=== PATIENT | female | born 1950 | race Caucasian/White ===

== ENCOUNTER 2017-01-20 09:02 | Outpatient (CLI) | payer OTHER | END 2017-01-20 09:03 | disposition home or self-care (01) | DX: I10 Essential (primary) hypertension (principal); E78.5 Hyperlipidemia, unspecified; E55.9 Vitamin D deficiency, unspecified; E11.9 Type 2 diabetes mellitus without complications ==

== ENCOUNTER 2017-06-19 08:58 | Outpatient (CLI) | payer OTHER ==
[2017-06-19 13:25] LABS: ALBUMIN/GLOBULIN RATIO 1.3 (1.0-2.2); BILIRUBIN,TOTAL 0.5 mg/dL (0.2-1.0); BUN - BLOOD UREA NITROGEN 17 mg/dL (6-20); CALCIUM 9.6 mg/dL (8.5-10.3); CARBON DIOXIDE - CO2 27 mmol/L (21-32); CHLORIDE 105 mmol/L (101-111); CHOLESTEROL 165 mg/dL; CREATININE 1.1 mg/dL (0.4-1.0); GFR - MDRD 50 (>89); GLUCOSE 94 mg/dL (70-100); HDL CHOLESTEROL 33 mg/dL; LDL/HDL RATIO 2.5 (<4.4); POTASSIUM 4.3 mmol/L (3.5-5.0); SODIUM 142 mmol/L (135-145); TOTAL PROTEIN 7.3 g/dL (6.7-8.2); TRIGLYCERIDES 245 mg/dL; VLDL CHOLESTEROL 49 mg/dL
== END 2017-06-19 08:59 | disposition home or self-care (01) ==
LOC: LAB.WCP 08:58
PROVIDERS: ATTEND Family Medicine
DX: E78.5 Hyperlipidemia, unspecified (principal)
CPT/HCPCS: 36415; 80053; 80061

== ENCOUNTER 2017-09-18 08:00 | Outpatient (CLI) | payer OTHER ==
[2017-09-18 20:10] LABS: HEMOGLOBIN A1C 0.9 g/dL
[2017-09-18 20:28] LABS: ALBUMIN/GLOBULIN RATIO 1.2 (1.0-2.2); BILIRUBIN,TOTAL 0.4 mg/dL (0.2-1.0); BUN - BLOOD UREA NITROGEN 17 mg/dL (6-20); CALCIUM 9.7 mg/dL (8.5-10.3); CARBON DIOXIDE - CO2 26 mmol/L (21-32); CHLORIDE 107 mmol/L (101-111); CHOL/HDL RATIO 6.6 (<4.4); CHOLESTEROL 191 mg/dL; CREATININE 1.3 mg/dL (0.4-1.0); GFR - MDRD 41 (>89); GLUCOSE 85 mg/dL (70-100); HDL CHOLESTEROL 29 mg/dL; LDL/HDL RATIO 3.7 (<4.4); POTASSIUM 4.4 mmol/L (3.5-5.0); SODIUM 139 mmol/L (135-145); TOTAL PROTEIN 7.4 g/dL (6.7-8.2); TRIGLYCERIDES 269 mg/dL; VLDL CHOLESTEROL 54 mg/dL
== END 2017-09-18 08:01 | disposition home or self-care (01) ==
LOC: LAB.WCP 08:00
PROVIDERS: ATTEND Family Medicine
DX: E78.5 Hyperlipidemia, unspecified (principal); E11.9 Type 2 diabetes mellitus without complications
CPT/HCPCS: 36415; 80053; 80061; 83036

== ENCOUNTER 2018-01-29 08:00 | Outpatient (CLI) | payer MEDICARE, OTHER | END 2018-01-29 08:01 | LOC: LAB.R 08:00 | PROVIDERS: ATTEND Family Medicine | DX: R30.0 Dysuria (principal) | CPT/HCPCS: 87077; 87086 ==

== ENCOUNTER 2018-02-19 09:39 | Outpatient (CLI) | payer MEDICARE, OTHER ==
[2018-02-19 12:52] LABS: BASOPHILS % (AUTO) 0.6 %; EOSINOPHILS # (AUTO) 0.4 10^3/uL (0.0-0.7); EOSINOPHILS % (AUTO) 5.5 %; HGB - HEMOGLOBIN 12.3 g/dL (12.0-16.0); LYMPHOCYTES # (AUTO) 2.1 10^3/uL (1.5-3.5); LYMPHOCYTES % (AUTO) 32.8 %; MEAN CORPUSCULAR HEMOGLOBIN 31.5 pg (27.0-31.0); MEAN CORPUSCULAR HGB CONC 34.1 g/dL (32.0-36.0); MEAN CORPUSCULAR VOLUME 92.2 fL (81.0-99.0); MEAN PLATELET VOLUME 9.3 fL (7.9-10.8); MONOCYTES # (AUTO) 0.4 10^3/uL (0.0-1.0); MONOCYTES % (AUTO) 6.5 %; NEUTROPHILS # (AUTO) 3.5 10^3/uL (1.5-6.6); NEUTROPHILS % (AUTO) 54.6 %; PLT - PLATELET COUNT 267 10^3/uL (130-450); RED CELL DISTRIBUTION WIDTH 13.4 % (12.0-15.0); WHITE BLOOD COUNT 6.5 x10^3/uL (4.8-10.8)
[2018-02-19 13:39] LABS: HB2 TOTAL 13.2 g/dL; HEMOGLOBIN A1C 0.88 g/dL; HEMOGLOBIN A1C % 8.3 % (4.6-6.2)
[2018-02-19 13:43] LABS: ALBUMIN 4.1 g/dL (3.2-5.5); ALBUMIN/GLOBULIN RATIO 1.4 (1.0-2.2); ALKALINE PHOSPHATASE 63 IU/L (42-121); ALT ALANINE AMINOTRANSFERASE 39 IU/L (10-60); AST ASPARTATE AMINOTRANSFERASE 38 IU/L (10-42); BILIRUBIN,TOTAL 0.4 mg/dL (0.2-1.0); BUN - BLOOD UREA NITROGEN 18 mg/dL (6-20); CALCIUM 9.7 mg/dL (8.5-10.3); CARBON DIOXIDE - CO2 27 mmol/L (21-32); CHLORIDE 104 mmol/L (101-111); CHOL/HDL RATIO 6.6 (<4.4); CHOLESTEROL 179 mg/dL; CREATININE 1.1 mg/dL (0.4-1.0); GFR - MDRD 50 (>89); GLUCOSE 111 mg/dL (70-100); HDL CHOLESTEROL 27 mg/dL; LDL CHOLESTEROL,CALCULATED 103 mg/dL; LDL/HDL RATIO 3.8 (<4.4); SODIUM 138 mmol/L (135-145); TOTAL PROTEIN 7.1 g/dL (6.7-8.2); VLDL CHOLESTEROL 49 mg/dL
== END 2018-02-19 09:40 | disposition home or self-care (01) ==
LOC: LAB.WCP 09:39
PROVIDERS: ATTEND Family Medicine
DX: E11.9 Type 2 diabetes mellitus without complications (principal); I10 Essential (primary) hypertension; E78.5 Hyperlipidemia, unspecified
CPT/HCPCS: 36415; 80053; 80061; 82043; 83036; 83721; 85025

== ENCOUNTER 2018-02-27 07:30 | Outpatient (CLI) | payer MEDICARE, OTHER | END 2018-02-27 07:31 | disposition home or self-care (01) | LOC: LAB.WCP 07:30 | PROVIDERS: ATTEND Family Medicine | DX: R19.7 Diarrhea, unspecified (principal) | CPT/HCPCS: 87493 ==

== ENCOUNTER 2018-06-23 09:08 | Outpatient (CLI) | payer MEDICARE, OTHER ==
[2018-06-23 12:30] LABS: BASOPHILS # (AUTO) 0.1 10^3/uL (0.0-0.1); BASOPHILS % (AUTO) 0.8 %; EOSINOPHILS # (AUTO) 0.3 10^3/uL (0.0-0.7); EOSINOPHILS % (AUTO) 5.6 %; HGB - HEMOGLOBIN 12.4 g/dL (12.0-16.0); LYMPHOCYTES # (AUTO) 2.3 10^3/uL (1.5-3.5); LYMPHOCYTES % (AUTO) 37.2 %; MEAN CORPUSCULAR HEMOGLOBIN 31.9 pg (27.0-31.0); MEAN CORPUSCULAR HGB CONC 34.4 g/dL (32.0-36.0); MEAN CORPUSCULAR VOLUME 92.6 fL (81.0-99.0); MEAN PLATELET VOLUME 9.3 fL (7.9-10.8); MONOCYTES # (AUTO) 0.4 10^3/uL (0.0-1.0); MONOCYTES % (AUTO) 5.8 %; NEUTROPHILS # (AUTO) 3.2 10^3/uL (1.5-6.6); NEUTROPHILS % (AUTO) 50.6 %; PLT - PLATELET COUNT 267 10^3/uL (130-450); RED BLOOD COUNT 3.89 10^6/uL (4.20-5.40); RED CELL DISTRIBUTION WIDTH 12.9 % (12.0-15.0); WHITE BLOOD COUNT 6.3 x10^3/uL (4.8-10.8)
[2018-06-23 12:52] LABS: ALBUMIN 4.1 g/dL (3.2-5.5); ALBUMIN/GLOBULIN RATIO 1.3 (1.0-2.2); ALKALINE PHOSPHATASE 73 IU/L (42-121); ALT ALANINE AMINOTRANSFERASE 52 IU/L (10-60); AST ASPARTATE AMINOTRANSFERASE 41 IU/L (10-42); BILIRUBIN,TOTAL 0.5 mg/dL (0.2-1.0); BUN - BLOOD UREA NITROGEN 25 mg/dL (6-20); CALCIUM 9.9 mg/dL (8.5-10.3); CARBON DIOXIDE - CO2 25 mmol/L (21-32); CHLORIDE 104 mmol/L (101-111); CHOL/HDL RATIO 4.9 (<4.4); CHOLESTEROL 186 mg/dL; CREATININE 1.1 mg/dL (0.4-1.0); GFR - MDRD 50 (>89); GLUCOSE 176 mg/dL (70-100); HDL CHOLESTEROL 38 mg/dL; LDL CHOLESTEROL,CALCULATED 104 mg/dL; LDL/HDL RATIO 2.7 (<4.4); SODIUM 139 mmol/L (135-145); TOTAL PROTEIN 7.3 g/dL (6.7-8.2); VLDL CHOLESTEROL 44 mg/dL
[2018-06-23 13:47] LABS: HEMOGLOBIN A1C 0.94 g/dL; HEMOGLOBIN A1C % 8.8 % (4.6-6.2)
== END 2018-06-23 09:09 | disposition home or self-care (01) ==
LOC: LAB.WCP 09:08
PROVIDERS: ATTEND Family Medicine
DX: I10 Essential (primary) hypertension (principal); E11.9 Type 2 diabetes mellitus without complications; E78.5 Hyperlipidemia, unspecified
CPT/HCPCS: 36415; 80053; 80061; 83036; 83721; 85025

== ENCOUNTER 2019-01-19 09:30 | Outpatient (CLI) | payer MEDICARE, OTHER ==
[2019-01-19 12:59] LABS: BASOPHILS # (AUTO) 0.1 10^3/uL (0.0-0.1); BASOPHILS % (AUTO) 1.3 %; EOSINOPHILS # (AUTO) 0.4 10^3/uL (0.0-0.7); EOSINOPHILS % (AUTO) 5.8 %; LYMPHOCYTES # (AUTO) 2.4 10^3/uL (1.5-3.5); LYMPHOCYTES % (AUTO) 33.8 %; MEAN CORPUSCULAR HEMOGLOBIN 31.9 pg (27.0-31.0); MEAN CORPUSCULAR HGB CONC 34.1 g/dL (32.0-36.0); MEAN CORPUSCULAR VOLUME 93.5 fL (81.0-99.0); MEAN PLATELET VOLUME 9.3 fL (7.9-10.8); MONOCYTES # (AUTO) 0.5 10^3/uL (0.0-1.0); MONOCYTES % (AUTO) 7.2 %; NEUTROPHILS # (AUTO) 3.7 10^3/uL (1.5-6.6); NEUTROPHILS % (AUTO) 51.9 %; PLT - PLATELET COUNT 275 10^3/uL (130-450); RED BLOOD COUNT 4.08 10^6/uL (4.20-5.40); RED CELL DISTRIBUTION WIDTH 13.1 % (12.0-15.0); WHITE BLOOD COUNT 7.2 x10^3/uL (4.8-10.8)
[2019-01-19 13:01] LABS: HEMOGLOBIN A1C 0.89 g/dL
[2019-01-19 13:07] LABS: ALBUMIN/GLOBULIN RATIO 1.1 (1.0-2.2); ALKALINE PHOSPHATASE 75 IU/L (42-121); ALT ALANINE AMINOTRANSFERASE 42 IU/L (10-60); AST ASPARTATE AMINOTRANSFERASE 36 IU/L (10-42); BILIRUBIN,TOTAL 0.6 mg/dL (0.2-1.0); BUN - BLOOD UREA NITROGEN 23 mg/dL (6-20); CALCIUM 9.7 mg/dL (8.5-10.3); CARBON DIOXIDE - CO2 27 mmol/L (21-32); CHLORIDE 104 mmol/L (101-111); CHOL/HDL RATIO 5.4 (<4.4); CHOLESTEROL 177 mg/dL; CREATININE 1.2 mg/dL (0.4-1.0); GFR - MDRD 45 (>89); GLUCOSE 97 mg/dL (70-100); HDL CHOLESTEROL 33 mg/dL; LDL CHOLESTEROL,CALCULATED 103 mg/dL; LDL/HDL RATIO 3.1 (<4.4); SODIUM 139 mmol/L (135-145); TOTAL PROTEIN 7.5 g/dL (6.7-8.2); VLDL CHOLESTEROL 41 mg/dL
== END 2019-01-19 23:59 | disposition home or self-care (01) ==
LOC: LAB.WCP 09:30
PROVIDERS: ATTEND Family Medicine
DX: E78.5 Hyperlipidemia, unspecified (principal); E11.9 Type 2 diabetes mellitus without complications; I10 Essential (primary) hypertension
CPT/HCPCS: 36415; 80053; 80061; 83036; 83721; 85025

== ENCOUNTER 2019-02-09 09:01 | Outpatient (CLI) | payer MEDICARE, OTHER ==
--- NOTE | 2019-02-09 11:22 | XRAY Report ---
Reason: FOOT PAIN,RIGHT Procedure Date: 02/09/2019 Accession Number: [id number] / [id number] Procedure: WCP - Foot 3 View RT CPT Code: FULL RESULT: EXAM: RIGHT FOOT RADIOGRAPHY EXAM DATE: 02/09/2019 09:12 AM. CLINICAL HISTORY: Foot pain, right. COMPARISON: None. TECHNIQUE: 3 views. FINDINGS: Bones: Os peroneum variant is noted. No fractures or bone lesions. Joints: Normal. No subluxations. Soft Tissues: Normal. No soft tissue swelling. IMPRESSION: Os peroneum is a common anatomical variant which is sometimes associated with pathology including fracture, peroneus longus tenosynovitis or peroneus longus tear. Please correlate this to the location of the patient's foot tenderness. RADIA
== END 2019-02-09 09:02 | disposition home or self-care (01) ==
LOC: DI.WCP 09:01
PROVIDERS: ATTEND Family Medicine
DX: M79.671 Pain in right foot (principal)

== ENCOUNTER → 2019-06-16 | Outpatient (CLI) | payer MEDICARE, OTHER ==
[2019-06-16 12:35] LABS: BASOPHILS # (AUTO) 0.1 10^3/uL (0.0-0.1); BASOPHILS % (AUTO) 0.7 %; EOSINOPHILS # (AUTO) 0.3 10^3/uL (0.0-0.7); EOSINOPHILS % (AUTO) 4.3 %; HGB - HEMOGLOBIN 12.7 g/dL (12.0-16.0); LYMPHOCYTES # (AUTO) 2.2 10^3/uL (1.5-3.5); MEAN CORPUSCULAR HEMOGLOBIN 32.4 pg (27.0-31.0); MEAN CORPUSCULAR HGB CONC 33.7 g/dL (32.0-36.0); MEAN CORPUSCULAR VOLUME 96.2 fL (81.0-99.0); MEAN PLATELET VOLUME 11.5 fL (7.9-10.8); MONOCYTES # (AUTO) 0.5 10^3/uL (0.0-1.0); NEUTROPHILS # (AUTO) 4.2 10^3/uL (1.5-6.6); NEUTROPHILS % (AUTO) 57.6 %; PLT - PLATELET COUNT 265 10^3/uL (130-450); RED BLOOD COUNT 3.92 10^6/uL (4.20-5.40); RED CELL DISTRIBUTION WIDTH 12.7 % (12.0-15.0); WHITE BLOOD COUNT 7.3 x10^3/uL (4.8-10.8)
[2019-06-16 12:49] LABS: ALBUMIN 4.2 g/dL (3.2-5.5); ALBUMIN/GLOBULIN RATIO 1.2 (1.0-2.2); ALKALINE PHOSPHATASE 74 IU/L (42-121); ALT ALANINE AMINOTRANSFERASE 61 IU/L (10-60); AST ASPARTATE AMINOTRANSFERASE 68 IU/L (10-42); BILIRUBIN,TOTAL 0.6 mg/dL (0.2-1.0); BUN - BLOOD UREA NITROGEN 20 mg/dL (6-20); CALCIUM 9.9 mg/dL (8.5-10.3); CARBON DIOXIDE - CO2 29 mmol/L (21-32); CHLORIDE 105 mmol/L (101-111); CHOL/HDL RATIO 5.7 (<4.4); CHOLESTEROL 171 mg/dL; CREATININE 1.1 mg/dL (0.4-1.0); GFR - MDRD 50 (>89); GLUCOSE 109 mg/dL (70-100); HDL CHOLESTEROL 30 mg/dL; LDL CHOLESTEROL,CALCULATED 97 mg/dL; LDL/HDL RATIO 3.2 (<4.4); SODIUM 142 mmol/L (135-145); TOTAL PROTEIN 7.6 g/dL (6.7-8.2); VLDL CHOLESTEROL 44 mg/dL
[2019-06-16 13:29] LABS: HB2 TOTAL 12.9 g/dL; HEMOGLOBIN A1C 0.92 g/dL; HEMOGLOBIN A1C % 8.7 % (4.6-6.2)
== END ==
LOC: LAB.WCP 09:00
PROVIDERS: ATTEND Family Medicine
DX: E78.5 Hyperlipidemia, unspecified (principal); E11.9 Type 2 diabetes mellitus without complications; I10 Essential (primary) hypertension
CPT/HCPCS: 36415; 80053; 80061; 83036; 83721; 85025

== ENCOUNTER 2019-07-02 09:48 | Outpatient (CLI) | payer MEDICARE, OTHER ==
--- NOTE | 2019-07-05 13:37 | DEXA Report ---
Reason: OSTEOPENIA Procedure Date: 07/02/2019 Accession Number: [id number] / [id number] Procedure: DEX - Dexa Spine and/or Hip CPT Code: FULL RESULT: EXAM: Dexa Spine and/or Hip DATE: 07/02/2019 11:10 AM CLINICAL HISTORY: OSTEOPENIA FOLLOW-UP TECHNIQUE: Dual energy x-ray absorptiometry (DXA) was performed on a [email or web address] System. Regions measured are the AP Spine, femoral neck, and if needed forearm. COMPARISON: None. Performed at an outside institution. In accordance with the International Society for Clinical Densitometry (ISCD) guidelines, data from previous exams may be reanalyzed using current recommendations and techniques. This is done to allow a more accurate basis for comparison with the current study. FINDINGS: The data for the lumbar spine is as follows: BMD (g/cm/cm) T-SCORE Z-SCORE REGION L1 1.212 0.7 2.0 L2 1.212 0.1 1.4 L3 1.183 -0.1 1.1 L4 1.182 -0.1 1.1 TOTAL 1.196 0.1 1.4 NOTE: All evaluable vertebrae are used for classification The data for the hip is as follows: BMD (g/cm/cm) T-SCORE Z-SCORE REGION Neck 0.753 -2.1 -0.7 TOTAL 0.917 -0.7 0.3 NOTE: The femoral neck or total proximal femur, whichever is lowest, is used for classification. IMPRESSION: THE WHO CLASSIFICATION BASED ON THE INTERNATIONAL REFERENCE STANDARD IS OSTEOPENIA, REFERENCE LEFT FEMORAL NECK. THE FRACTURE RISK IS INCREASED. RECOMMENDATION: Patients with diagnosis of osteoporosis or osteopenia should have regular bone mineral density assessment. For those eligible for Medicare, routine testing is allowed once every 2 years. Testing frequency can be increased for patients who have rapidly progressing disease or for those who are receiving medical therapy to restore bone mass. COMMENT: World Health Organization (WHO) definitions for osteoporosis and osteopenia: NORMAL BMD: T-score at -1.0 or higher, fracture risk is low OSTEOPENIA BMD: T-score between -1.0 and -2.5, fracture risk is increased. OSTEOPOROSIS BMD: T-score at -2.5 or lower, fracture risk is high. National Osteoporosis Foundation recommends: 1. Obtain adequate dietary calcium (at least 1200 mg per day) and vitamin D (400-800 international units per day). 2. Participate, as appropriate, in regular weightbearing and muscle-strengthening exercise. 3. Avoid tobacco use and reduce alcohol and caffeine intake. 4. For more detailed information see the website at www.NOF.org.
== END 2019-07-02 09:49 | disposition home or self-care (01) ==
LOC: DI 09:48
PROVIDERS: ATTEND Physician Assistant Medical
DX: M85.88 Other specified disorders of bone density and structure, other site (principal)
CPT/HCPCS: 77080

== ENCOUNTER 2019-09-21 08:42 | Outpatient (CLI) | payer MEDICARE, OTHER ==
[2019-09-21 13:43] LABS: ALBUMIN 4.4 g/dL (3.2-5.5); ALBUMIN/GLOBULIN RATIO 1.3 (1.0-2.2); ALKALINE PHOSPHATASE 71 IU/L (42-121); ALT ALANINE AMINOTRANSFERASE 42 IU/L (10-60); AST ASPARTATE AMINOTRANSFERASE 48 IU/L (10-42); BILIRUBIN,TOTAL 0.6 mg/dL (0.2-1.0); BUN - BLOOD UREA NITROGEN 21 mg/dL (6-20); CALCIUM 9.9 mg/dL (8.5-10.3); CARBON DIOXIDE - CO2 28 mmol/L (21-32); CHLORIDE 105 mmol/L (101-111); CHOL/HDL RATIO 5.7 (<4.4); CHOLESTEROL 195 mg/dL; CREATININE 1.1 mg/dL (0.4-1.0); GFR - MDRD 50 (>89); GLUCOSE 105 mg/dL (70-100); HDL CHOLESTEROL 34 mg/dL; LDL CHOLESTEROL,CALCULATED 131 mg/dL; LDL/HDL RATIO 3.9 (<4.4); SODIUM 141 mmol/L (135-145); TOTAL PROTEIN 7.8 g/dL (6.7-8.2); VLDL CHOLESTEROL 30 mg/dL
[2019-09-21 14:11] LABS: HB2 TOTAL 13.1 g/dL; HEMOGLOBIN A1C 0.97 g/dL; HEMOGLOBIN A1C % 8.9 % (4.6-6.2)
== END 2019-09-21 23:59 | disposition home or self-care (01) ==
LOC: LAB.WCP 08:42
PROVIDERS: ATTEND Physician Assistant Medical
DX: E11.9 Type 2 diabetes mellitus without complications (principal)
CPT/HCPCS: 36415; 80053; 80061; 83036; 83721

== ENCOUNTER 2019-10-31 02:02 | Emergency (ER) | payer MEDICARE, OTHER ==
[2019-10-31 02:54] LABS: BASOPHILS # (AUTO) 0.1 10^3/uL (0.0-0.1); BASOPHILS % (AUTO) 0.8 %; EOSINOPHILS # (AUTO) 0.2 10^3/uL (0.0-0.7); EOSINOPHILS % (AUTO) 1.6 %; LYMPHOCYTES # (AUTO) 2.5 10^3/uL (1.5-3.5); MEAN CORPUSCULAR HEMOGLOBIN 31.1 pg (27.0-31.0); MEAN CORPUSCULAR HGB CONC 32.8 g/dL (32.0-36.0); MEAN CORPUSCULAR VOLUME 94.7 fL (81.0-99.0); MONOCYTES # (AUTO) 0.7 10^3/uL (0.0-1.0); MONOCYTES % (AUTO) 7.5 %; NEUTROPHILS % (AUTO) 63.1 %; PLT - PLATELET COUNT 344 10^3/uL (130-450); RED BLOOD COUNT 4.18 10^6/uL (4.20-5.40); RED CELL DISTRIBUTION WIDTH 12.2 % (12.0-15.0); WHITE BLOOD COUNT 9.5 x10^3/uL (4.8-10.8)
[2019-10-31 03:05] LABS: BILIRUBIN,TOTAL 0.7 mg/dL (0.2-1.0); CALCIUM 10.3 mg/dL (8.5-10.3); CREATININE 1.6 mg/dL (0.4-1.0)
--- NOTE | 2019-10-31 03:05 | ED Physician Documentation ---
History of Present Illness - Stated complaint Stated Complaint: LOW BLOOD SUGAR - Chief complaint Chief Complaint: Abd Pain - History obtained from History obtained from: Patient - History of Present Illness Timing: Enter time (01:40), Today Pain level max: 0 Pain level now: 0 Improved by: PO (orange juice) Worsened by: no apparent exacerbating factors - Additonal information Additional information: patient states Pippa been fighting a sinus infection all week and low blood sugar. woke 1:40 AM with dizziness, clammy, blood sugar 47. gave her PO sugars such as orange juice, but blood sugar on recheck was 44 so came to ED. 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 - Present Medications Home Medications: Ambulatory Orders Medication Instructions Recorded Confirmed Albuterol Sulfate [Proair Hfa 1 - 2 puffs INH Q4H PRN 09/29/19 10/31/19 Inhaler] Insulin Glargine [Lantus Solostar] 40 unit SQ DAILY PM 09/29/19 10/31/19 Insulin Glulisine [Apidra Solostar] 5 - 15 unit SUBQ TIDWM 09/29/19 10/31/19 Metformin HCl 1,000 mg PO BID 09/29/19 10/31/19 Simvastatin 20 mg PO DAILY PM 09/29/19 10/31/19 gemfibroziL [Gemfibrozil] 600 mg PO BID 09/29/19 10/31/19 lisinopriL [Lisinopril] 2.5 mg PO DAILY 09/29/19 10/31/19 Doxycycline Hyclate 100 mg PO BID 10/31/19 10/31/19 Guaifenesin/Dextromethorphan 5 - 10 ml PO Q6HR PRN 10/31/19 10/31/19 [Guaifenesin-Dm 100-10 mg/5 ml] Ondansetron [Ondansetron Odt] 8 mg PO Q6HR PRN 10/31/19 10/31/19 - Allergies Allergies/Adverse Reactions: Allergies Allergy/AdvReac Type Severity Reaction Status Date / Time canagliflozin [From Invokana] AdvReac Unknown Verified 10/31/19 02:24 cephalexin [From Keflex] AdvReac Unknown Verified 10/31/19 02:24 - Social History Does the pt smoke?: No Smoking Status: Never smoker Does the pt drink ETOH?: No Does the pt have substance abuse?: No - Immunizations Immunizations are current?: Yes - POLST Patient has POLST: No PD ED PE NORMAL - Vitals Vital signs reviewed: Yes - General General: Alert and oriented X 3, No acute distress, Well developed/nourished - HEENT HEENT: Moist mucous membranes - Neck Neck: Supple, no meningeal sign - Cardiac Cardiac: RRR, No murmur - Respiratory Respiratory: No respiratory distress, Clear bilaterally - Abdomen Abdomen: Soft, Non tender - Neuro Neuro: Alert and oriented X 3 Eye Opening: Spontaneous Motor: Obeys Commands Verbal: Oriented GCS Score: 15 Results - Vitals Vitals: Oxygen O2 Source Room air - Labs Labs: Laboratory Tests 10/31/19 10/31/19 02:49 02:49 WBC 9.5 RBC 4.18 L Hgb 13.0 Hct 39.6 MCV 94.7 MCH 31.1 H MCHC 32.8 RDW 12.2 Plt Count 344 MPV 10.0 Neut # (Auto) 6.0 Lymph # (Auto) 2.5 Tompkins # (Auto) 0.7 Eos # (Auto) 0.2 Baso # (Auto) 0.1 Absolute Nucleated RBC 0.00 Nucleated RBC % 0.0 Sodium 141 Potassium 3.7 Chloride 98 L Carbon Dioxide 28 Anion Gap 15.0 H BUN 26 H Creatinine 1.6 H Estimated GFR (MDRD) 32 L Glucose 164 H Calcium 10.3 Total Bilirubin 0.7 AST 38 ALT 35 Alkaline Phosphatase 75 Total Protein 8.0 Albumin 4.0 Globulin 4.0 Albumin/Globulin Ratio 1.0 Lipase 105 H PD MEDICAL DECISION MAKING - ED course Complexity details: reviewed results, re-evaluated patient, considered differential, d/w patient, d/w family Departure - Departure Disposition: 01 Home, Self Care Clinical Impression: Hypoglycemia Condition: Good Instructions: ED Diabetes Hypoglycemia Oral Agent, ED Diabetes Hypoglycemia Insulin React Follow-Up: Cortney Cole PA-C [Primary Care Provider] - Discharge Date/Time: 10/31/19 04:25
[2019-10-31 04:26] VITALS: BP 142/74
== END 2019-10-31 04:25 | disposition home or self-care (01) ==
LOC: ED 02:02
DX: E11.649 Type 2 diabetes mellitus with hypoglycemia without coma (principal); Z79.4 Long term (current) use of insulin
CPT/HCPCS: 36415; 80053; 83690; 85025; 99284

== ENCOUNTER 2019-12-27 09:06 | Outpatient (CLI) | payer MEDICARE, OTHER ==
[2019-12-27 12:46] LABS: ALBUMIN/GLOBULIN RATIO 1.2 (1.0-2.2); ALKALINE PHOSPHATASE 79 IU/L (42-121); ALT ALANINE AMINOTRANSFERASE 19 IU/L (10-60); AST ASPARTATE AMINOTRANSFERASE 21 IU/L (10-42); BILIRUBIN,TOTAL 0.6 mg/dL (0.2-1.0); BUN - BLOOD UREA NITROGEN 13 mg/dL (6-20); CALCIUM 9.5 mg/dL (8.5-10.3); CARBON DIOXIDE - CO2 27 mmol/L (21-32); CHLORIDE 103 mmol/L (101-111); CHOL/HDL RATIO 5.3 (<4.4); CHOLESTEROL 155 mg/dL; GFR - MDRD 55 (>89); GLUCOSE 146 mg/dL (70-100); HDL CHOLESTEROL 29 mg/dL; LDL CHOLESTEROL,CALCULATED 82 mg/dL; LDL/HDL RATIO 2.8 (<4.4); SODIUM 138 mmol/L (135-145); TOTAL PROTEIN 7.4 g/dL (6.7-8.2); VLDL CHOLESTEROL 44 mg/dL
[2019-12-27 13:15] LABS: HB2 TOTAL 12.9 g/dL; HEMOGLOBIN A1C 0.8 g/dL; HEMOGLOBIN A1C % 7.8 % (4.6-6.2)
== END 2019-12-27 23:59 | disposition home or self-care (01) ==
LOC: LAB.WCP 09:06
PROVIDERS: ATTEND Physician Assistant Medical
DX: E11.9 Type 2 diabetes mellitus without complications (principal)
CPT/HCPCS: 36415; 80053; 80061; 83036; 83721

== ENCOUNTER 2020-01-12 17:46 | Outpatient (CLI) | payer MEDICARE, OTHER | END 2020-01-12 17:47 | disposition home or self-care (01) | LOC: COV 17:46 | PROVIDERS: ATTEND Family Medicine | DX: R05 Cough (principal) ==

== ENCOUNTER 2020-04-11 07:39 | Outpatient (CLI) | payer MEDICARE, OTHER ==
[2020-04-11 12:25] LABS: CALCIUM 9.6 mg/dL (8.5-10.3); CREATININE 1.2 mg/dL (0.4-1.0)
[2020-04-11 12:30] LABS: HEMOGLOBIN A1C 0.9 g/dL; HEMOGLOBIN A1C % 8.5 % (4.6-6.2)
[2020-04-11 19:34] LABS: CREATININE,URINE 52.6 mg/dL; MICROALBUM/CREATININE RATIO,UR 49.4 ug/mg (<30.0); MICROALBUMIN,URINE 2.6 mg/dL (0-300.0)
== END 2020-04-11 23:59 | disposition home or self-care (01) ==
LOC: LAB.WCP 07:39
PROVIDERS: ATTEND Physician Assistant Medical
DX: E11.9 Type 2 diabetes mellitus without complications (principal)
CPT/HCPCS: 36415; 80048; 82043; 82570; 83036

== ENCOUNTER 2020-07-21 08:00 | Outpatient (CLI) | payer MEDICARE, OTHER ==
[2020-07-21 11:59] LABS: ALBUMIN/GLOBULIN RATIO 1.1 (1.0-2.2); ALKALINE PHOSPHATASE 73 IU/L (42-121); ALT ALANINE AMINOTRANSFERASE 37 IU/L (10-60); AST ASPARTATE AMINOTRANSFERASE 34 IU/L (10-42); BILIRUBIN,TOTAL 0.7 mg/dL (0.2-1.0); BUN - BLOOD UREA NITROGEN 28 mg/dL (6-20); CALCIUM 9.3 mg/dL (8.5-10.3); CARBON DIOXIDE - CO2 25 mmol/L (21-32); CHLORIDE 106 mmol/L (101-111); CHOL/HDL RATIO 4.9 (<4.4); CHOLESTEROL 167 mg/dL; CREATININE 1.3 mg/dL (0.4-1.0); GLUCOSE 78 mg/dL (70-100); HDL CHOLESTEROL 34 mg/dL; LDL CHOLESTEROL,CALCULATED 97 mg/dL; LDL/HDL RATIO 2.9 (<4.4); SODIUM 139 mmol/L (135-145); TOTAL PROTEIN 7.5 g/dL (6.7-8.2); VLDL CHOLESTEROL 36 mg/dL
[2020-07-21 12:02] LABS: HEMOGLOBIN A1c% 7.6 % (4.27-6.07)
== END 2020-07-21 23:59 | disposition home or self-care (01) ==
LOC: LAB.WCP 08:00
PROVIDERS: ATTEND Physician Assistant Medical
DX: E11.9 Type 2 diabetes mellitus without complications (principal)
CPT/HCPCS: 36415; 80053; 80061; 83036; 83721

== ENCOUNTER 2021-03-05 08:00 | Outpatient (CLI) | payer MEDICARE, OTHER | END 2021-03-05 23:59 | disposition home or self-care (01) | LOC: LAB.N 08:00 | PROVIDERS: ATTEND Family Medicine | DX: R39.9 Unspecified symptoms and signs involving the genitourinary system (principal) | CPT/HCPCS: 87086 ==

== ENCOUNTER 2021-03-17 08:00 | Outpatient (CLI) | payer MEDICARE, OTHER | END 2021-03-17 23:59 | disposition home or self-care (01) | LOC: LAB.N 08:00 | PROVIDERS: ATTEND Family Medicine | DX: N10 Acute pyelonephritis (principal) | CPT/HCPCS: 87077; 87086 ==

== ENCOUNTER 2021-06-04 15:57 | Outpatient (CLI) | payer MEDICARE, OTHER | END 2021-06-04 23:59 | LOC: LAB.N 15:57 | PROVIDERS: ATTEND Physician Assistant Medical | DX: U07.1 COVID-19 (principal) ==

== ENCOUNTER 2021-06-04 16:48 | Outpatient (CLI) | payer MEDICARE, OTHER ==
--- NOTE | 2021-06-04 17:14 | XRAY Report ---
PROCEDURE: Chest 2 View X-Ray INDICATIONS: COUGH TECHNIQUE: 2 view(s) of the chest. COMPARISON: None. FINDINGS: Surgical changes and devices: None. Lungs and pleura: No pleural effusions or pneumothorax. Lungs are clear. Mediastinum: Mediastinal contours are normal. Heart size is enlarged. Bones and chest wall: No suspicious bony abnormalities. Soft tissues appear unremarkable. IMPRESSION: No acute cardiopulmonary pathology. Reviewed by: Arcenio Varghese MD on 06/04/2021 5:13 PM PDT Approved by: Arcenio Varghese MD on 06/04/2021 5:13 PM PDT Station ID: [id number]
== END 2021-06-04 23:59 | disposition home or self-care (01) ==
LOC: DI.N 16:48
PROVIDERS: ATTEND Physician Assistant Medical
DX: R05 Cough (principal); U07.1 COVID-19
CPT/HCPCS: 71046; U0004

== ENCOUNTER 2021-07-12 12:16 | Outpatient (CLI) | payer MEDICARE, OTHER ==
--- NOTE | 2021-07-12 14:54 | XRAY Report ---
PROCEDURE: Chest 2 View X-Ray INDICATIONS: COVID-19 CORONAVIRUS PNEUMONIA TECHNIQUE: 2 view(s) of the chest. COMPARISON: Chest x-ray 06/04/2021 FINDINGS: Surgical changes and devices: None. Lungs and pleura: Diffuse appearance of bilateral pulmonary opacities. Mediastinum: Mediastinal contours are normal. Heart size is enlarged. Bones and chest wall: No suspicious bony abnormalities. Soft tissues appear unremarkable. IMPRESSION: Diffuse bilateral pulmonary opacities most consistent with pneumonia. Reviewed by: Kady Dolan MD on 07/12/2021 2:52 PM PDT Approved by: Kady Dolan MD on 07/12/2021 2:52 PM PDT Station ID: [id number]
== END 2021-07-12 12:17 | disposition home or self-care (01) ==
LOC: DI 12:16
PROVIDERS: ATTEND Family Medicine
DX: U07.1 COVID-19 (principal); J12.82 Pneumonia due to coronavirus disease 2019

== ENCOUNTER 2021-08-13 10:58 | Outpatient (CLI) | payer MEDICARE, OTHER ==
--- NOTE | 2021-08-23 00:16 | XRAY Report ---
PROCEDURE: Chest 2 View X-Ray INDICATIONS: COVID-19 PNEUMONIA TECHNIQUE: 2 view(s) of the chest. Images became available for interpretation on 08/22/2021. COMPARISON: None. FINDINGS: Surgical changes and devices: None. Lungs and pleura: There is persistent appearance of bilateral pulmonary opacities, mildly improved co mpared to prior exam. Mediastinum: Mediastinal contours are normal. Heart size is normal. Bones and chest wall: No suspicious bony abnormalities. Soft tissues appear unremarkable. IMPRESSION: Mildly improved appearance of bilateral pulmonary opacities most consistent with pneumon ia. Reviewed by: Kady Dolan MD on 08/23/2021 12:15 AM PDT Approved by: Kady Dolan MD on 08/23/2021 12:15 AM PDT Station ID: [id number]
== END 2021-08-13 10:59 | disposition home or self-care (01) ==
LOC: DI.N 10:58
PROVIDERS: ATTEND Physician Assistant Medical
DX: U07.1 COVID-19 (principal)

== ENCOUNTER 2021-09-12 10:16 | Outpatient (CLI) | payer MEDICARE, OTHER | END 2021-09-12 10:17 | disposition home or self-care (01) | LOC: DI 10:16 | PROVIDERS: ATTEND Physician Assistant Medical | DX: I11.9 Hypertensive heart disease without heart failure (principal) | CPT/HCPCS: 93306 ==

== ENCOUNTER 2021-10-10 11:22 | Outpatient (CLI) | payer MEDICARE, OTHER ==
--- NOTE | 2021-10-10 13:39 | XRAY Report ---
PROCEDURE: Chest 2 View X-Ray INDICATIONS: COVID-19,CORONAVIRUS PNEUMONIA TECHNIQUE: 2 view(s) of the chest. COMPARISON: August 13, 2021. FINDINGS: SUPPORT DEVICES: None. LUNGS/PLEURA: Redemonstrated coarsened interstitial markings. No pleural effusion or space-occupying pneumothorax. MEDIASTINUM: The cardiomediastinal silhouette is within normal limits. BONES/SOFT TISSUES: No acute abnormality. IMPRESSION: 1.No significant interval change. Reviewed by: Sunil Cartwright MD on 10/10/2021 1:38 PM PST Approved by: Sunil Cartwright MD on 10/10/2021 1:38 PM [facility] Station ID: [id number]
== END 2021-10-10 11:23 | disposition home or self-care (01) ==
LOC: DI 11:22
PROVIDERS: ATTEND Physician Assistant Medical
DX: J45.909 Unspecified asthma, uncomplicated (principal)

== ENCOUNTER 2021-11-28 08:00 | Outpatient (CLI) | payer MEDICARE, OTHER | END 2021-11-28 23:59 | disposition home or self-care (01) | LOC: LAB.WCP 08:00 | PROVIDERS: ATTEND Physician Assistant Medical | DX: N10 Acute pyelonephritis (principal) | CPT/HCPCS: 87086 ==

== ENCOUNTER 2021-12-06 08:00 | Outpatient (CLI) | payer MEDICARE, OTHER | END 2021-12-06 23:59 | disposition home or self-care (01) | LOC: LAB.N 08:00 | PROVIDERS: ATTEND Physician Assistant | DX: R39.9 Unspecified symptoms and signs involving the genitourinary system (principal) | CPT/HCPCS: 87086 ==

== ENCOUNTER 2021-12-27 08:35 | Outpatient (CLI) | payer MEDICARE, OTHER ==
--- NOTE | 2021-12-27 09:41 | XRAY Report ---
PROCEDURE: Chest 2 View X-Ray INDICATIONS: COVID-19,PNEUMONIA TECHNIQUE: 2 view(s) of the chest. COMPARISON: None. FINDINGS: Surgical changes and devices: None. Lungs and pleura: No pleural effusions or pneumothorax. Lungs are clear. Mediastinum: Mediastinal contours are normal. Heart size is enlarged. Bones and chest wall: No suspicious bony abnormalities. Soft tissues appear unremarkable. IMPRESSION: No acute cardiopulmonary abnormality Reviewed by: Stalin Meng on 12/27/2021 9:39 AM [facility] Approved by: Stalin Meng on 12/27/2021 9:39 AM [facility] Station ID: [id number]
== END 2021-12-27 08:36 | disposition home or self-care (01) ==
LOC: DI 08:35
PROVIDERS: ATTEND Physician Assistant Medical
DX: J45.909 Unspecified asthma, uncomplicated (principal)

== ENCOUNTER 2022-02-04 08:00 | Outpatient (CLI) | payer MEDICARE, OTHER ==
--- NOTE | 2022-02-04 14:41 | XRAY Report ---
PROCEDURE: Hip w/Pelvis 1V LT INDICATIONS: L LEG PX TECHNIQUE: AP pelvis with lateral view(s) of the left hip(s). COMPARISON: None. FINDINGS: Bones: No fractures or dislocations. Mild to moderate left hip joint osteoarthritic changes are see n. No evidence of avascular necrosis of femoral head. Pelvic ring appears intact. No suspicious bony lesions. Soft tissues: The visualized bowel gas pattern is normal. No suspicious soft tissue calcifications. 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 No fracture or dislocation. No evidence o f avascular necrosis. Reviewed by: Arcenio Varghese MD on 02/04/2022 2:39 PM PDT Approved by: Arcenio Varghese MD on 02/04/2022 2:39 PM PDT Station ID: [id number]
== END 2022-02-04 23:59 | disposition home or self-care (01) ==
LOC: DI.N 08:00
PROVIDERS: ATTEND Nurse Practitioner
DX: M16.12 Unilateral primary osteoarthritis, left hip (principal)

== ENCOUNTER 2022-02-04 08:00 | Outpatient (CLI) | payer MEDICARE, OTHER ==
[2022-02-04 18:22] LABS: BASOPHILS # (AUTO) 0.1 10^3/uL (0.0-0.1); BASOPHILS % (AUTO) 0.6 %; EOSINOPHILS # (AUTO) 0.3 10^3/uL (0.0-0.7); EOSINOPHILS % (AUTO) 3.7 %; HCT - HEMATOCRIT 44.3 % (37.0-47.0); HGB - HEMOGLOBIN 14.9 g/dL (12.0-16.0); LYMPHOCYTES # (AUTO) 2.7 10^3/uL (1.5-3.5); LYMPHOCYTES % (AUTO) 31.9 %; MEAN CORPUSCULAR HEMOGLOBIN 30.5 pg (27.0-31.0); MEAN CORPUSCULAR HGB CONC 33.6 g/dL (32.0-36.0); MEAN CORPUSCULAR VOLUME 90.6 fL (81.0-99.0); MONOCYTES # (AUTO) 0.5 10^3/uL (0.0-1.0); MONOCYTES % (AUTO) 5.6 %; NEUTROPHILS # (AUTO) 4.8 10^3/uL (1.5-6.6); NEUTROPHILS % (AUTO) 57.8 %; PLT - PLATELET COUNT 240 10^3/uL (130-450); RED BLOOD COUNT 4.89 10^6/uL (4.20-5.40); RED CELL DISTRIBUTION WIDTH 12.7 % (12.0-15.0); WHITE BLOOD COUNT 8.3 x10^3/uL (4.8-10.8)
[2022-02-04 18:25] LABS: ALBUMIN 4.2 g/dL (3.2-5.5); ALBUMIN/GLOBULIN RATIO 1.3 (1.0-2.2); BILIRUBIN,TOTAL 0.5 mg/dL (0.2-1.0); CALCIUM 9.9 mg/dL (8.5-10.3); CREATININE 1.2 mg/dL (0.4-1.0); TOTAL PROTEIN 7.4 g/dL (6.7-8.2)
== END 2022-02-04 08:01 | disposition home or self-care (01) ==
LOC: LAB.N 08:00
PROVIDERS: ATTEND Nurse Practitioner
DX: M79.606 Pain in leg, unspecified (principal)
CPT/HCPCS: 36415; 80053; 85025; 85379

== ENCOUNTER 2023-05-26 08:09 | Outpatient (CLI) | payer MEDICARE, OTHER ==
--- NOTE | 2023-05-26 09:51 | DEXA Report ---
PROCEDURE: Dexa Spine and/or Hip INDICATIONS: POST MENOPAUSAL TECHNIQUE: Dual energy x-ray absorptiometry (DXA) was performed on a [employer] System. Regions measur ed are the AP Spine, femoral neck, and if needed forearm. COMPARISON: 07/02/2019 FINDINGS: Lumbar Spine: Bone Mineral Density 1.21 g/cm/cm,T score 0.3. Previously 0.1 Left Femoral Neck: Bone Mineral Density 0.80 g/cm/cm, T score -1.8. Previously -2.1 Left Hip: Bone Mineral Density 0.91 g/cm/cm,T score -0.7. Previously -0.7 (T score greater or equal to -1.0: NORMAL) (T score from -1.1 to -2.4: OSTEOPENIA) (T score less than or equal to -2.5 to: OSTEOPOROSIS) Impression: By WHO criteria, this patient has low bone density (osteopenia). Osteopenia of the left femoral neck. Elevated fracture risk. Overall T scores of the lumbar spine and left hip are not significantly martinez ed. Patients with diagnosis of osteoporosis or osteopenia should have regular bone mineral density assess ment. For those eligible for Medicare, routine testing is allowed once every 2 years. Testing frequ ency can be increased for patients who have rapidly progressing disease or for those who are receivin g medical therapy to restore bone mass. Reviewed by: Benjamin Pablo MD on 05/26/2023 9:49 AM PDT Approved by: Benjamin Pablo MD on 05/26/2023 9:49 AM PDT Station ID: [id number]
== END 2023-05-26 08:10 | disposition home or self-care (01) ==
LOC: DI 08:09
PROVIDERS: ATTEND Physician Assistant Medical
DX: Z78.0 Asymptomatic menopausal state (principal); M85.88 Other specified disorders of bone density and structure, other site

== ENCOUNTER 2023-08-05 14:53 | Outpatient (CLI) | payer MEDICARE, OTHER | END 2023-08-05 14:54 | disposition home or self-care (01) | LOC: RT 14:53 | PROVIDERS: ATTEND Physician Assistant Medical | DX: U07.1 COVID-19 (principal); J12.82 Pneumonia due to coronavirus disease 2019; J45.909 Unspecified asthma, uncomplicated | CPT/HCPCS: 94060; 94729 ==

== ENCOUNTER 2024-07-01 15:04 | Outpatient (CLI) | payer MEDICARE, OTHER ==
[2024-07-01 15:21] LABS: FECAL OCCULT BLOOD (FIT) POSITIVE (NEGATIVE)
== END 2024-07-01 15:05 | disposition home or self-care (01) ==
LOC: LAB.R 15:04
PROVIDERS: ATTEND Physician Assistant Medical
DX: K92.1 Melena (principal)
CPT/HCPCS: 82274

== ENCOUNTER 2025-07-14 17:53 | Inpatient (IN) ==
--- NOTE | 2025-07-14 18:11 | ED Physician Documentation ---
PD HPI DYSPNEA Stated complaint Stated Complaint: SOA, NVD, DIZZINESS Chief complaint Chief Complaint: Resp Additional information Additional information: 74-year-old femaleWith history of asthma And has required hospitalization for COVID-pneumonia in about 2019 presents to emergency department with increased shortness of breath confusion and cough. Patient's [id number] says that they brought her dinner about a week ago and she had kind of a cough and she reported that she was not feeling very good today she called and was not making very much sense and she was speaking with her [id number] and was having increased work of breathing. Upon arrival to emergency department her O2 sats were 84% on room air. She does not normally require supplemental oxygen. She is has no nausea or vomiting just says that she has got this constant cough and having a hard time clearing her lungs with increased shortness of breath. She is unsure if she has been having any fevers or chills. Meds/Allgy Home Medications Ambulatory Orders Medication Instructions Recorded Confirmed Permanent Disabled Placard 08/30/24 06/09/25 albuterol sulfate 90 mcg/actuation inhalation 08/30/24 06/09/25 aerosol inhaler blood-glucose meter (FreeStyle 08/30/24 06/09/25 Lite Meter kit) pen needle, diabetic 31 gauge x 08/30/24 06/09/25 5/16" (1st Tier Unifine Pentips) rosuvastatin 10 mg tablet See Rx Instructions .Route 0 12/03/24 06/09/25 .COMPLEX #90 tabs albuterol sulfate 90 mcg/actuation 2 puff inhalation Q 6H PRN 12/07/24 06/09/25 aerosol inhaler (Ventolin HFA) shortness of breath or wheezing #8.5 grams benzonatate 200 mg capsule 200 mg PO BID PRN cough #20 caps 12/07/24 06/09/25 blood sugar diagnostic (FreeStyle #360 strips 12/29/24 06/09/25 Lite Strips) insulin aspart U-100 100 unit/mL 20 unit (0.2 mL) subc ut TID #45 mL 02/24/25 06/09/25 (3 mL) subcutaneous pen (Novolog FlexPen U-100 Insulin aspart) losartan 50 mg tablet 50 mg PO BID #180 tabs 02/2406/09/25 sulfamethoxazole 800 1 tab PO BID #20 tabs 06/09/25 mg-trimethoprim 160 mg tablet (Bactrim DS) tirzepatide 2.5 mg/0.5 mL 2.5 mg (0.5 mL) subcut QWEEK #6 mL 02/24/25 06/09/25 subcutaneous pen injector (Mounjaro) blood-glucose sensor (Dexcom G7 #9 ea 06/09/25 5 Sensor device) insulin glargine 100 unit/mL 50 unit (0.5 mL) subcut B ID Type 2 06/19/25 subcutaneous solution (Lantus diabetes mellitus #50 mL U-100 Insulin) Allergies Allergies Allergy/AdvReac Type Severity Reaction Status Date / Time azithromycin (From Zithromax) AdvReac Severe Diarrhea Verified 07/14/25 18:01 cephalexin (From Keflex) AdvReac Severe hives Verified 07/14/25 18:01 canagliflozin (From Invokana) AdvReac Unknown Verified 07/14/25 18:01 [facility] Active Problems All Active Problems (Updated 07/14/25 @ 20:57 by Dimas Mayorga DNP) Aspiration pneumonia (Acute) Acute respiratory failure (Acute) Pneumonia (Acute) Hyperlipidemia (Acute) Osteopenia (Acute) Vitamin D deficiency (Acute) Elevated liver enzymes (Acute) Hypertension, essential, benign (Acute) Asthma (Acute) Melena (Acute) Type 2 diabetes mellitus with hyperglycemia (Acute) Acute renal insufficiency (Acute) Medical History Medical History (Updated 07/14/25 @ 20:57 by Dimas Mayorga DNP) Tinnitus Rotator cuff syndrome of left shoulder Neoplasm of uncertain behavior Social History Social History Smoking Status: Never smoker Do you feel safe in your home environment?: Yes History of physical, verbal, emotional, or financial abuse?: No 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: No Exam Exam Vital Signs: Vital Signs x48h Temp Pulse Resp BP Pulse Ox O2 Flow Rate 07/14/25 20:16 91 25 H 162/76 H 98 07/14/25 20:15 93 162/76 H 99 2 07/14/25 20:00 95 97 2 07/14/25 19:46 94 17 161/86 H 98 07/14/25 19:45 93 161/86 H 97 2 07/14/25 19:30 96 92 2 07/14/25 19:15 94 164/85 H 100 2 07/14/25 19:15 164/85 H 98 07/14/25 18:45 172/82 H 100 07/14/25 18:45 172/82 H 100 07/14/25 18:30 90 22 1 07/14/25 18:20 3 07/14/25 18:05 179/91 H 99 07/14/25 18:05 91 24 179/91 H 98 2 07/14/25 18:02 37.2 C 91 28 H 167/83 H 84 L Constitutional normal general appearance, distress noted (respiratory), average body habitus, limitations noted (altered mental status) and alert HENMT normocephalic and head/scalp atraumatic Eyes PERRL Neck/C-Spine visual inspection normal Chest inspection of chest normal and palpation of chest normal Respiratory Diminished breath sounds throughout with inspiratory and expiratory wheezing Cardiovascular normal heart rate noted Genitourinary no CVA tenderness Extremities normal to inspection Psychiatry oriented x3 Skin skin color normal and no rash Results Vitals Vitals: Vital Signs - 24 hr 07/14/25 18:02 07/14/25 18:05 07/14/25 18:05 Temperature 37.2 C Temperature Source Oral Pulse Rate 91 91 Respiratory Rate 28 H 24 Blood Pressure 167/83 H 179/91 H 179/91 H O2 Saturation 84 L 98 99 Oxygen Delivery Method O2 Source Room air Nasal cannula If not protocol: Oxygen Flow, liters/minute 2 Pain Intensity 5 07/14/25 18:20 07/14/25 18:30 07/14/25 18:45 Temperature Temperature Source Pulse Rate 90 Respiratory Rate 22 Blood Pressure 172/82 H O2 Saturation 100 Oxygen Delivery Method Nasal Cannula O2 Source Nasal cannula If not protocol: Oxygen Flow, liters/minute 3 1 Pain Intensity 07/14/25 18:45 07/14/25 19:15 07/14/25 19:15 Temperature Temperature Source Pulse Rate 94 Respiratory Rate Blood Pressure 172/82 H 164/85 H 164/85 H O2 Saturation 100 98 100 Oxygen Delivery Method O2 Source Nasal cannula If not protocol: Oxygen Flow, liters/minute 2 Pain Intensity 07/14/25 19:30 07/14/25 19:45 07/14/25 19:46 Temperature Temperature Source Pulse Rate 96 93 94 Respiratory Rate 17 Blood Pressure 161/86 H 161/86 H O2 Saturation 92 97 98 Oxygen Delivery Method O2 Source Nasal cannula Nasal cannula If not protocol: Oxygen Flow, liters/minute 2 2 Pain Intensity 07/14/25 20:00 07/14/25 20:15 07/14/25 20:16 Temperature Temperature Source Pulse Rate 95 93 91 Respiratory Rate 25 H Blood Pressure 162/76 H 162/76 H O2 Saturation 97 99 98 Oxygen Delivery Method O2 Source Nasal cannula Nasal cannula If not protocol: Oxygen Flow, liters/minute 2 2 Pain Intensity Oxygen O2 Source Nasal cannula Labs Labs: Laboratory Tests 07/14/25 07/14/25 07/14/25 18:14 18:28 19:49 WBC 17.2 H RBC 4.67 Hgb 13.8 Hct 42.4 MCV 90.8 MCH 29.6 MCHC 32.5 RDW 12.1 Plt Count 276 MPV 10.3 Neut # (Auto) 14.8 H Lymph # (Auto) 1.4 L [place] # (Auto) 0.9 Eos # (Auto) 0.1 Baso # (Auto) 0.1 Absolute Nucleated RBC 0.00 Nucleated RBC % 0.0 VBG pH 7.431 H VBG pCO2 43.9 VBG pO2 51.3 H VBG HCO3 29.5 H VBG Total CO2 30.9 H VBG O2 Saturation 84.0 H VBG Base Excess 5.0 H Sodium 140 Potassium 3.7 Chloride 100 L Carbon Dioxide 31 Anion Gap 9.0 BUN 18 Creatinine 1.5 H Estimated GFR (MDRD) 34 L Glucose 123 H Calcium 9.9 Total Bilirubin 0.7 AST 12 ALT 9 L Alkaline Phosphatase 86 Total Protein 7.6 Albumin 3.6 Globulin 4.0 Albumin/Globulin Ratio 0.9 L Nasal Adenovirus (PCR) NOT DETECTED Nasal B. parapertussis DNA (PCR) NOT DETECTED Nasal Coronavir 229E PCR NOT DETECTED Nasal Coronavir HKU1 PCR NOT DETECTED Nasal Coronavir NL63 PCR NOT DETECTED Nasal Coronavir OC43 PCR NOT DETECTED Nasal Enterovir/Rhinovir PCR NOT DETECTED Nasal Influenza B PCR NOT DETECTED Nasal Influenza A PCR NOT DETECTED Nasal Parainfluen 1 PCR NOT DETECTED Nasal Parainfluen 2 PCR NOT DETECTED Nasal Parainfluen 3 PCR NOT DETECTED Nasal Parainfluen 4 PCR NOT DETECTED Nasal RSV (PCR) NOT DETECTED Nasal B.pertussis DNA PCR NOT DETECTED Nasal C.pneumoniae (PCR) NOT DETECTED Freddy Human Metapneumo PCR NOT DETECTED Nasal M.pneumoniae (PCR) NOT DETECTED Nasal SARS-CoV-2 (PCR) NOT DETECTED Rads (name of study) 1 view chest x-ray: Relevant Findings:: Final report received and EMP independent interpretation of test Interpretation: IMPRESSION: 1. Findings suggestive of pulmonary vascular congestion with interstitial edema, with no confluent consolidation or significant pleural effusion. Follow-up erect PA and lateral views may be obtained. 2. Rotated view with possible right tracheal deviation, such as may be caused by a left thyroid mass. This can be also better assessed on erect PA view with better positioning. CT chest without: Relevant Findings:: Final report received and EMP independent interpretation of test Interpretation: IMPRESSION: 1. Right lower lobe consolidation with opacification of the respiratory bronchioles and surrounding groundglass opacities. Findings are concerning for aspiration pneumonia. Recommend short interval follow-up chest CT in 6-8 weeks to exclude underlying obstructing lesion. 2. Prominent right mediastinal and hilar lymph nodes are likely reactive. 3. Subpleural reticulations and mosaic attenuation can be seen with early interstitial lung disease. This can also be reevaluated on the follow-up chest CT. 4. No thyroid nodule PD Medical Decision Making ED course ED course: 74-year-old female comes into the emergency department for concerns of increased cough and shortness of breath. Chest x-ray originally showed pulmonary vascular congestion with interstitial edema without confluent consolidation or pleural effusion there is a possible tracheal deviation with a possible left thyroid mass we completed the CT scan for further evaluation of this which denies any thyroid nodules or mass. CT shows right lower lobe consolidation with opacification of the respiratory bronchial cantu and ground glass opacities. Most likely aspiration pneumonia she also has prominent right mediastinal and hilar lymph nodes and subpleural reticulations and mosaic attenuation most likely due to interstitial lung disease. Patient is on 3 to 4 L supplemental oxygen. Given her acute respiratory failure with hypoxia and aspiration pneumonia patient would benefit from admission. Spoke with hospitalist who has graciously agreed to admit the patient. 2 sets of blood cultures have been collected prior to initiating antibiotics patient started on Rocephin and Flagyl here in the emergency department. Discharge Plan Discharge Patient Disposition: [facility] DC/Xfer Condition: Good Clinical Impression: Acute respiratory failure, Aspiration pneumonia Prescriptions: No Action rosuvastatin 10 mg tablet See Rx Instructions .ROUTE .COMPLEX Qty: 90 3RF Dose Instruction: TAKE 1 TABLET DAILY FOR CHOLESTEROL Rx Instructions: TAKE 1 TABLET DAILY FOR CHOLESTEROL (DME) FreeStyle Lite Strips Strip See Rx Instructions .Route Qty: 360 4RF Rx Instructions: As directed, use to check blood sugars 4x a day insulin glargine [Lantus U-100 Insulin] 100 unit/mL solution 50 unit subcut BID Qty: 50 0RF Rx Instructions: INJECT 50 UNITS UNDER THE SKIN TWICE A DAY FOR DIABETES MELLITUS TYPE 2 albuterol sulfate 90 mcg/actuation HFA aerosol inhaler inhalation Rx Instructions: USE 2 INHALATIONS EVERY 4 HOURS NEEDED (DME) pen needle, diabetic [1st Tier Unifine Pentips] 31 gauge x 5/16" needle See Rx Instructions .Route Rx Instructions: As directed (DME) Permanent Disabled Placard Misc See Rx Instructions .Route Rx Instructions: As directed (DME) blood-glucose meter [FreeStyle Lite Meter] Kit See Rx Instructions .Route Rx Instructions: As directed insulin aspart U-100 [Novolog FlexPen U-100 Insulin] 100 unit/mL (3 mL) in sulin pen 20 unit subcut TID Qty: 45 3RF Rx Instructions: before meals losartan 50 mg tablet 50 mg PO BID Qty: 180 3RF Mounjaro 2.5 mg/0.5 mL pen injector 2.5 mg subcut QWEEK Qty: 6 3RF Rx Instructions: inject 2.5 once weekly SC, then call in 4 weeks for refill sulfamethoxazole-trimethoprim [Bactrim DS] 800-160 mg tablet 1 tab PO BID Qty: 20 0RF (DME) Judobaby G7 Sensor Device See Rx Instructions .Route Qty: 9 4RF Rx Instructions: As directed to read blood sugar results via reader device albuterol sulfate [Ventolin HFA] 90 mcg/actuation HFA aerosol inhaler 2 puff inhalation Q6H PRN (Reason: shortness of breath or wheezing) Qty: 8.5 1RF benzonatate 200 mg capsule 200 mg PO BID PRN (Reason: cough) Qty: 20 0RF Print Language: Divehi
[2025-07-14] MEDS: IPRATROPIUM/ALBUTEROL 3 ML NEB INH STA (18:27)
[2025-07-14 18:32] LABS: HCT - HEMATOCRIT 42.4 % (37.0-47.0); HGB - HEMOGLOBIN 13.8 g/dL (12.0-16.0); MEAN PLATELET VOLUME 10.3 fL (7.9-10.8); NRBC ABSOLUTE COUNT (AUTO) 0.00 x10^3/uL; NUCLEATED RED BLOOD CELLS AUTO 0.0 /100WBC; PLT - PLATELET COUNT 276 10^3/uL (130-450); RED CELL DISTRIBUTION WIDTH 12.1 % (12.0-15.0)
[2025-07-14] MEDS: methylPREDNISolone SUCCINATE 125 MG/2 ML VIAL IVP STA (18:40)
[2025-07-14] MEDS: LACTATED RINGERS 1,000 ML IV STA (18:41)
[2025-07-14 18:48] LABS: ALT ALANINE AMINOTRANSFERASE 9.0 IU/L (10-60); AST ASPARTATE AMINOTRANSFERASE 12.0 IU/L (10-42); BUN - BLOOD UREA NITROGEN 18.0 mg/dL (6-20); CARBON DIOXIDE - CO2 31.0 mmol/L (21-32); CREATININE 1.5 mg/dL (0.6-1.3); GFR - MDRD 34.0 (>89)
--- NOTE | 2025-07-14 18:50 | XRAY Report ---
EXAM: XR Chest 1V DATE: 07/14/2025 6:20 PM PDT INDICATION: 74 years Female with SOA wheezing TECHNIQUE: Single portable frontal view of the chest was obtained. LIMITATION: Patient rotation to the right COMPARISON: 12/27/2021 FINDINGS: Lung parenchyma: Prominent bronchovascular markings with ill-defined contours no confluent consolidation. Pleural spaces: No significant pleural effusion or definite focal lesion seen. Cardiomediastinum and jay: Top normal cardiac silhouette. Apparent right paratracheal displacement Osseous structures: No suspicious or acute focal lesion seen. Chest wall: No significant focal lesion seen. IMPRESSION: 1. Findings suggestive of pulmonary vascular congestion with interstitial edema, with no confluent consolidation or significant pleural effusion. Follow-up erect PA and lateral views may be obtained. 2. Rotated view with possible right tracheal deviation, such as may be caused by a left thyroid mass. This can be also better assessed on erect PA view with better positioning. Reviewed by: Spencer Barahona MD on 07/14/2025 6:47 PM PDT Approved by: Spencer Barahona MD on 07/14/2025 6:47 PM PDT Station ID: [id number]
[2025-07-14 19:44] LABS: B. PARAPERTUSSIS- RESP PCR PAN NOT DETECTED; B. PERTUSSIS- RESP PCR PANEL NOT DETECTED; C. PNEUMONIAE- RESP PCR PANEL NOT DETECTED; CORONAVIRUS 229E-RESP PCR NOT DETECTED; CORONAVIRUS HKU1-RESP PCR NOT DETECTED; CORONAVIRUS NL63-RESP PCR NOT DETECTED; CORONAVIRUS OC43-RESP PCR NOT DETECTED; HUMAN METAPNEUMOVIRUS NOT DETECTED; INFLUENZA A- RESP PCR PANEL NOT DETECTED; INFLUENZA B - RESP PCR PANEL NOT DETECTED; M. PNEUMONIAE- RESP PCR PANEL NOT DETECTED; PARAINFLUENZA VIRUS 1 NOT DETECTED; PARAINFLUENZA VIRUS 2 NOT DETECTED; PARAINFLUENZA VIRUS 4 NOT DETECTED; RHINOVIRUS/ENTEROVIRUS NOT DETECTED; RSV- RESP PCR PANEL NOT DETECTED; SARS-CoV-2 -RESP PCR PANEL NOT DETECTED
[2025-07-14] MEDS: PROCHLORPERAZINE 10 MG/2 ML VIAL IVP STA (19:45)
[2025-07-14 19:56] LABS: VBG PCO2 43.9 mmHg (41-51); VBG PH 7.431 (7.31-7.41); VBG PO2 51.3 mmHg (25-47)
[2025-07-14 19:57] LABS: VBG BASE EXCESS 5.0 mmol/L (-2 - +2); VBG TOTAL CO2 30.9 mmol/L (24-29)
--- NOTE | 2025-07-14 20:00 | CT Report ---
PROCEDURE: CT Chest WO INDICATIONS: SOA, eval thyroid nodule TECHNIQUE: A CT scan of the chest was performed. Intravenous contrast media was not administered. Images were recorded and evaluated at appropriate window settings. Reformats: axial MIP of the chest, coronal and sagittal. For radiation dose reduction, the following was used: automated exposure control, adjustment of mA and/or kV according to patient size. COMPARISON: None. FINDINGS: Image quality: Diagnostic. Chest wall and lower neck: No thyroid nodule which requires sonographic follow up. No axillary or supraclavicular adenopathy by size. Lungs and pleura: Right lower lobe consolidation with opacification of the respiratory bronchioles and mild surrounding groundglass opacities. Subpleural reticulations in the right lung greater than left lung. Mosaic attenuation bilaterally. No pleural effusions. No pneumothorax. Mediastinum: Heart size is mildly enlarged. Calcifications of the mitral valve annulus. No coronary artery calcifications. No pericardial effusion. No acute large vessel abnormality. Dilation of the main pulmonary trunk can be seen with chronic pulmonary hypertension.. Prominent right mediastinal and hilar lymph nodes measure up to 1 cm by short axis (2/48). Bones: No aggressive osseous abnormality. Upper Abdomen: Cholelithiasis and sludge without acute cholecystitis. IMPRESSION: 1. Right lower lobe consolidation with opacification of the respiratory bronchioles and surrounding groundglass opacities. Findings are concerning for aspiration pneumonia. Recommend short interval follow-up chest CT in 6-8 weeks to exclude underlying obstructing lesion. 2. Prominent right mediastinal and hilar lymph nodes are likely reactive. 3. Subpleural reticulations and mosaic attenuation can be seen with early interstitial lung disease. This can also be reevaluated on the follow-up chest CT. 4. No thyroid nodule. Reviewed by: Juan Carlos Phoenix MD on 07/14/2025 7:57 PM PDT Approved by: Juan Carlos Phoenix MD on 07/14/2025 7:57 PM PDT Station ID: [id number]
[2025-07-14] MEDS: AZITHROMYCIN 250 MG TABLET PO SCH (20:44)
[2025-07-14] MEDS: cefTRIAXone 2 GM in SODIUM CHLORIDE 0.9% MINIBAG 100 ML IV STA (20:44)
--- NOTE | 2025-07-14 20:56 | HISTORY & PHYSICAL EXAMINATION ---
Chief Complaint Chief Complaint Chief Complaint: Dyspnea History of Present Illness Admitted From Admitted From:: Home History Obtained From History obtained from: Interview with patient and Family History of Present Illness HPI Comment/Other: 74-year-old female with history of type 2 diabetes. A few years ago, she had a greater than 1 month stay at [facility] for COVID-pneumonia and was on oxygen long-term after that. She had weaned herself off of her oxygen. She reports feeling unwell, with dyspnea and cough developing over the past few days. She reports some episodes of hemoptysis, but usually without. Denies fever, chills, chest pain, bowel/bladder abnormality. Reports no smoking history. She reports that today she was particularly unwell, so she presented to the ER In the ER, chest x-ray was performed which showed possible pulmonary vascular congestion with interstitial edema. CT of the chest was performed which showed possible early developing interstitial lung disease but also showed ground glass opacities in the right lower lobe suspicious for aspiration pneumonia. Patient reports no aspiration episodes. Lab work revealed that her creatinine is slightly above baseline at 1.5. She also has an elevated WBC at 17.2. She was hypoxic on arrival, and requires 2 L oxygen to maintain saturation greater than 88%, so hospitalist was contacted for admission for pneumonia requiring supplemental oxygen Meds/Allgy Home Medications Ambulatory Orders Medication Instructions Recorded Confirmed Permanent Disabled Placard 08/30/24 06/09/25 albuterol sulfate 90 mcg/actuation inhalation 08/30/24 06/09/25 aerosol inhaler blood-glucose meter (FreeStyle 08/30/24 06/09/25 Lite Meter kit) pen needle, diabetic 31 gauge x 08/30/24 06/09/25 5/16" (1st Tier Unifine Pentips) rosuvastatin 10 mg tablet See Rx Instructions .Route 0 12/03/24 06/09/25 .COMPLEX #90 tabs albuterol sulfate 90 mcg/actuation 2 puff inhalation Q 6H PRN 12/07/24 06/09/25 aerosol inhaler (Ventolin HFA) shortness of breath or wheezing #8.5 grams benzonatate 200 mg capsule 200 mg PO BID PRN cough #20 caps 12/07/24 06/09/25 blood sugar diagnostic (Palatin Technologiesyle #360 strips 03/12/25 08/21/25 Lite Strips) insulin aspart U-100 100 unit/mL 20 unit (0.2 mL) subc ut TID #45 mL 02/24/25 06/09/25 (3 mL) subcutaneous pen (Novolog FlexPen U-100 Insulin aspart) losartan 50 mg tablet 50 mg PO BID #180 tabs 02/2406/09/25 sulfamethoxazole 800 1 tab PO BID #20 tabs 06/09/25 mg-trimethoprim 160 mg tablet (Bactrim DS) tirzepatide 2.5 mg/0.5 mL 2.5 mg (0.5 mL) subcut QWEEK #6 mL 02/24/25 06/09/25 subcutaneous pen injector (Mounjaro) blood-glucose sensor (Dexcom G7 #9 ea 06/09/25 5 Sensor device) insulin glargine 100 unit/mL 50 unit (0.5 mL) subcut B ID Type 2 06/19/25 subcutaneous solution (Lantus diabetes mellitus #50 mL U-100 Insulin) Allergies Allergies Allergy/AdvReac Type Severity Reaction Status Date / Time azithromycin (From Zithromax) AdvReac Severe Diarrhea Verified 07/14/25 18:01 cephalexin (From Keflex) AdvReac Severe hives Verified 07/14/25 18:01 canagliflozin (From Invokana) AdvReac Unknown Verified 07/14/25 18:01 [facility] Active Problems All Active Problems (Updated 07/14/25 @ 20:57 by Dimas Mayorga DNP) Aspiration pneumonia (Acute) Acute respiratory failure (Acute) Pneumonia (Acute) Hyperlipidemia (Acute) Osteopenia (Acute) Vitamin D deficiency (Acute) Elevated liver enzymes (Acute) Hypertension, essential, benign (Acute) Asthma (Acute) Melena (Acute) Type 2 diabetes mellitus with hyperglycemia (Acute) Acute renal insufficiency (Acute) Medical History Medical History (Updated 07/14/25 @ 20:57 by Dimas Mayorga DNP) Tinnitus Rotator cuff syndrome of left shoulder Neoplasm of uncertain behavior Social History Social History Smoking Status: Never smoker Do you dip or chew tobacco?: No Do you vape?: No Level: Independent Do you feel safe in your home environment?: Yes History of physical, verbal, emotional, or financial abuse?: No 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 Patient has POLST: No Review of Systems Status of ROS: 10 or more systems reviewed and unremarkable except as noted in history and below Constitutional Denies: Fever or Chills Cardiovascular Reports: shortness of breath with exertion; Denies: Irregular heart rate, chest pain or palpitations Respiratory Reports: Shortness of breath, Cough and Sputum production Gastrointestinal Denies: Abdominal pain Genitourinary Denies: Painful urination Exam Exam Vital Signs: Vital Signs x48h Temp Pulse Pulse Resp BP BP Pulse Ox 07/14/25 21:47 07/14/25 21:31 36.4 C L 94 20 165/92 H 91 L 07/14/25 21:18 37 C 90 20 166/83 H 96 07/14/25 20:16 91 25 H 162/76 H 98 07/14/25 20:15 93 162/76 H 99 07/14/25 20:00 95 97 07/14/25 19:46 94 17 161/86 H 98 07/14/25 19:45 93 161/86 H 97 07/14/25 19:30 96 92 07/14/25 19:15 94 164/85 H 100 07/14/25 19:15 164/85 H 98 07/14/25 18:45 172/82 H 100 07/14/25 18:45 172/82 H 100 07/14/25 18:30 90 22 07/14/25 18:20 07/14/25 18:05 179/91 H 99 07/14/25 18:05 91 24 179/91 H 98 07/14/25 18:02 37.2 C 91 28 H 167/83 H 84 L O2 Flow Rate 07/14/25 21:47 2 07/14/25 21:31 2 07/14/25 21:18 2 07/14/25 20:16 07/14/25 20:15 2 07/14/25 20:00 2 07/14/25 19:46 07/14/25 19:45 2 07/14/25 19:30 2 07/14/25 19:15 2 07/14/25 19:15 07/14/25 18:45 07/14/25 18:45 07/14/25 18:30 1 07/14/25 18:20 3 07/14/25 18:05 07/14/25 18:05 2 07/14/25 18:02 Constitutional normal general appearance and no apparent distress HENMT normocephalic Eyes PERRL Neck/C-Spine visual inspection normal Lymph no lymphadenopathy noted Chest inspection of chest normal Respiratory breath sounds equal bilaterally Diminished in bases Cardiovascular normal heart rate noted and regular rhythm noted Gastrointestinal abdomen normal to inspection, abdomen soft to palpation and nontender to palpation Extremities normal to inspection Neurology GCS 15 Psychiatry oriented x3 Skin skin color normal Conclusion/Plan Problem List (1) Acute respiratory failure: Plan: Acute hypoxic respiratory failure secondary to pneumonia On 2 L Manage pneumonia as below (2) Aspiration pneumonia: Plan: Patient has ground glass opacities on chest CT, suggestive of a right lower lobe aspiration pneumonia She requires 2 L oxygen, so she is being admitted She received Rocephin, azithromycin in the ER ATS, IDSA, do not recommend routine coverage of anaerobes and absence of lung abscess or empyema Follow-up clinical course in the morning, if she is not improved we will consider anaerobic coverage On further chart review, she has listed allergies to azithromycin and Keflex. She has not had any ill effects from receiving Azithromycin and ceftriaxone in the ER, so I question if these are actually allergies Nonetheless, I will switch her regimen to Levaquin 750 mg IV daily May transition to p.o. when off oxygen (3) Type 2 diabetes mellitus with hyperglycemia: Plan: Preliminary med rec shows that she takes Mounjaro, Lantus, as well as mealtime insulin Will start her on moderate dose sliding scale insulin for now A1c in a.m. Update insulin regimen after pharmacy review Plan Admit inpatient med floor Full code, but DO NOT INTUBATE Her is her surrogate decision maker Lab Results Lab results reviewed: Yes 07/14/25 18:28 07/14/25 18:28 Core Measures Anticipated LOS I expect patient to be DC'd or transferred within 96 hours.: Yes DVT/VTE - Prophylaxis VTE/DVT Prophylaxis med ordered at admit?: Yes
[2025-07-14] MEDS ORDERED: ONDANSETRON ODT 4 MG TABLET TL PRN (21:30)
[2025-07-14] MEDS ORDERED: SODIUM CHLORIDE FLUSH 0.9% 10 ML SYRINGE IVP PRN (21:30)
[2025-07-14] MEDS ORDERED: ACETAMINOPHEN 325 MG TABLET PO PRN (21:30)
[2025-07-14] MEDS ORDERED: ONDANSETRON 4 MG/2 ML VIAL IVP PRN (21:30)
[2025-07-14] MEDS ORDERED: IPRATROPIUM/ALBUTEROL 3 ML NEB INH PRN (21:50)
[2025-07-14] MEDS: LACTATED RINGERS 1,000 ML IV SCH (22:14)
[2025-07-14] MEDS: SODIUM CHLORIDE FLUSH 0.9% 10 ML SYRINGE IVP SCH (23:56)
[2025-07-15] MEDS: INSULIN LISPRO 300 UNIT/3 ML PEN SUBQ SCH ×3 (07:49→16:50)
[2025-07-15] MEDS: LOSARTAN 50 MG TABLET PO SCH (08:39)
[2025-07-15] MEDS: ENOXAPARIN 40 MG/0.4 ML SYRINGE SUBQ SCH (08:39)
[2025-07-15] MEDS ORDERED: cefTRIAXone 1 GM VIAL IVP SCH (09:00)
--- NOTE | 2025-07-15 09:28 | PHARMACY PROGRESS NOTE ---
Best Possible Medication History Admit Date and Time: 07/14/25 [id number] Home Medications Medication Instructions Recorded Confirmed Type Permanent Disabled Placard 08/30/24 06/09/25 History blood-glucose meter (FreeStyle 08/30/24 06/09/25 Hist ory Lite Meter kit) pen needle, diabetic 31 gauge x 08/30/24 06/09/25 His tory 5/16" (1st Tier Unifine Pentips) rosuvastatin 10 mg tablet See Rx Instructions .Route 0 12/03/24 07/15/25 Rx .COMPLEX #90 tabs albuterol sulfate 90 mcg/actuation 2 puff inhalation Q 6H PRN 12/07/24 07/15/25 Rx aerosol inhaler (Ventolin HFA) shortness of breath or wheezing #8.5 grams blood sugar diagnostic (FreeStyle #360 strips 12/29/24 06/09/25 Rx Lite Strips) losartan 50 mg tablet 50 mg PO BID #180 tabs 02/2407/15/25 Rx tirzepatide 2.5 mg/0.5 mL 2.5 mg (0.5 mL) subcut QWEEK #6 mL 02/24/25 07/15/25 Rx subcutaneous pen injector (Mounjaro) blood-glucose sensor (Dexcom G7 #9 ea 06/09/25 5 Rx Sensor device) insulin glargine 100 unit/mL 50 unit (0.5 mL) subcut B ID Type 2 06/19/25 07/15/25 Rx subcutaneous solution (Lantus diabetes mellitus #50 mL U-100 Insulin) insulin aspart U-100 100 unit/mL 12 - 18 unit subcut . TIDAC 07/15/25 07/15/25 History (3 mL) subcutaneous pen (Novolog FlexPen U-100 Insulin aspart) Processed by: Pharmacy Medications reviewed in ED?: No Medication History completed: Yes Patient Interview: Completed Secondary Source(s): Physician records, Pharmacy records and Insurance records [facility] Statement: As the person ultimately responsible for medication therapy, providers are able to order a medication from an existing home medication list in [facility] via the "Reconcile Routine" prior to Confirmation of that medication by support group manager. Such practice is discouraged except when the physician, in their clinical judgment, deems that a medical need exists for a medication without regard to previous use.
--- NOTE | 2025-07-15 09:50 | Speech Therapy Plan of Care ---
DIAGNOSIS Date of Service Date of Service: 07/15/25 Diagnosis: SOA, NVD, DIZZINESS MEDICAL/SURGICAL PAST HISTORY Past History Medical History (Updated 07/14/25 @ 20:57 by Dimas Mayorga DNP) Tinnitus Rotator cuff syndrome of left shoulder Neoplasm of uncertain behavior SPEECH ASSESSMENT Assessment: Mrs. Escalera is a 74 y/o F with T2DM (dx age 50) admitted for acute respiratory failure. CT chest: GGO in RLL, c/f aspiration PNA. PMH notable for >1 mo hospitalization for COVID PNA. Reports she had weaned herself off O2. Currently on 2L NC. Pt denies dysphagia. Reports hematemesis at ~0300 on 07/12 (), suspects possible aspiration event. MYRA (RN at this facility) advised ED eval, but pt remained home. No recurrent hematemesis. Denies h/o gastric ulcer. States she did not eat x5 days prior to this AM secondary to low energy. Denies depression. Her is currently in [place] awaiting truck repair. Oral mech exam/BSE WNL except for absent molars. Pt follows swallow precautions and reports comfort with regular diet. Silent aspiration cannot be ruled out at bedside, though not suspected. Impression: Functional oropharyngeal swallow. Recommendations: -Continue regular diet, thin liquids with safe swallow precautions -No MBSS indicated at this time -Emphasized importance of adequate nutrition and prompt ED/PCP notification if hematemesis recurs -Recommend nutrition consult and consider GI consult SPEECH FUNCTIONAL ASSESSMENTS Oral Motor Assessment Oral Motor Assessment Results: WNL. Dentition notable for lack of molars, Pt states she is able to compensate by taking extra time to chew her food before swallowing.
--- NOTE | 2025-07-15 11:34 | PROVIDER PROGRESS NOTE ---
Subjective Prog Note Date Prog Note Date: 07/15/25 Subjective Pt reports feeling: No change Current Medications Current Medications Current Medications: Current Medications Generic Name Dose Route Start Last Admin Trade Name Freq PRN Reason Stop Dose Admin Acetaminophen 650 mg 07/14/25 21:30 Acetaminophen 325 Mg Tablet PO Q4HR PRN Pain 1 to 4, or Fever Albuterol/Ipratropium 3 ml 07/14/25 21:50 Ipratropium/Albuterol 3 Ml Neb INH RTQID PRN Shortness of Air/Wheezing Atorvastatin Calcium 20 mg 07/15/25 21:00 Atorvastatin 10 Mg Tablet PO QPM LIEN Diphenhydramine HCl 50 mg 07/14/25 21:51 Diphenhydramine Inj 50 Mg/Ml Vial IVP Q6H PRN Allergy Symptoms Enoxaparin Sodium 40 mg 07/15/25 09:00 07/15/25 08:39 Enoxaparin 40 Mg/0.4 Ml Syringe SUBQ Not Given DAILY LIEN Guaifenesin 10 ml 07/14/25 22:05 07/14/25 22:25 Guaifenesin/Dextromethorphan 10 Ml Udc PO 10 ml Q6HR PRN Administration Cough Lactated Ringer's 1,000 mls @ 100 mls/hr 07/14/25 21:30 07/15/25 10:51 Lr IV 07/15/25 17:29 100 mls/hr .Q10H LIEN Administration Levofloxacin 750 mg in 150 mls @ 100 mls/hr 07/14/25 22:00 07/15/25 00:12 Levaquin 750 Mg/150 Ml IV Infused Q24H LIEN Infusion Insulin Human Lispro 2 - 10 unit 07/15/25 08:00 07/15/25 07:49 Insulin Lispro 300 Unit/3 Ml Pen SUBQ 6 unit 0800,1200,1700,2100 LIEN Administration Protocol Losartan Potassium 50 mg 07/15/25 09:00 07/15/25 08:39 Losartan 50 Mg Tablet PO 50 mg BID LIEN Administration Ondansetron HCl 4 mg 07/14/25 21:30 Ondansetron Odt 4 Mg Tablet TL Q6HR PRN Nausea / Vomiting Ondansetron HCl 4 mg 07/14/25 21:30 Ondansetron 4 Mg/2 Ml Vial IVP Q6HR PRN Nausea / Vomiting Sodium Chloride 10 ml 07/14/25 21:30 Sodium Chloride Flush 0.9% 10 Ml Syringe IVP PRN PRN NEEDED PER PROVIDER ORDERS Sodium Chloride 10 ml 07/15/25 01:00 07/15/25 08:39 Sodium Chloride Flush 0.9% 10 Ml Syringe IVP 10 ml 0100,0900,1700 LIEN Administration Objective Vital Signs/Intake & Output Reviewed Vital Signs: Yes Vital Signs: Vital Signs x48h Temp Pulse Resp BP Pulse Ox O2 Flow Rate 07/15/25 07:35 36.4 C L 78 18 138/77 H 95 2 Intake & Output: Intake & Output 07/12/25 07/13/25 07/14/25 07/15/25 23:59 23:59 23:59 23:59 Intake Total 1100 / 1100 1330 / 1330 Balance 1100 / 1100 1330 / 1330 Weight (kg) 81.6 kg Objective General Appearance: positive No acute distress and Alert Eyes Bilateral: positive Normal inspection ENT: positive ENT inspection nml Neck: positive Nml inspection Respiratory: positive Chest non-tender and No respiratory distress Cardiovascular: positive Regular rate & rhythm Abdomen: positive Non-tender Back: positive Nml inspection Skin: positive Color nml Extremities: positive Non-tender Neurologic/Psychiatric: positive Oriented x3 Lab Results 07/14/25 18:28 07/14/25 18:28 Other Labs: Lab Results x24hrs 07/15/25 07/15/25 07/14/25 Range/Units 11:07 07:32 21:47 WBC (4.8-10.8) x10^3/uL RBC (4.20-5.40) 10^6/uL Hgb (12.0-16.0) g/dL Hct (37.0-47.0) % MCV (81.0-99.0) fL MCH (27.0-31.0) pg MCHC (32.0-36.0) g/dL RDW (12.0-15.0) % Plt Count (130-450) 10^3/uL MPV (7.9-10.8) fL Neut # (Auto) (1.5-6.6) 10^3/uL Lymph # (Auto) (1.5-3.5) 10^3/uL Cameron # (Auto) (0.0-1.0) 10^3/uL Eos # (Auto) (0.0-0.7) 10^3/uL Baso # (Auto) (0.0-0.1) 10^3/uL Absolute Nucleated RBC x10^3/uL Nucleated RBC % /100WBC VBG pH (7.31-7.41) VBG pCO2 (41-51) mmHg VBG pO2 (25-47) mmHg VBG HCO3 (23-28) mmol/L VBG Total CO2 (24-29) mmol/L VBG O2 Saturation (60-80) % VBG Base Excess (-2 - +2) mmol/L Sodium (135-145) mmol/L Potassium (3.5-4.5) mmol/L Chloride (101-111) mmol/L Carbon Dioxide (21-32) mmol/L Anion Gap (6-13) BUN (6-20) mg/dL Creatinine (0.6-1.3) mg/dL Estimated GFR (MDRD) (>89) Glucose (74-104) mg/dL POC Whole Bld Glucose 419 351 157 (70-100) mg/dL Calcium (8.5-10.3) mg/dL Total Bilirubin (0.2-1.0) mg/dL AST (10-42) IU/L ALT (10-60) IU/L Alkaline Phosphatase (42-121) IU/L Total Protein (6.4-8.9) g/dL Albumin (3.2-5.5) g/dL Globulin (2.1-4.2) g/dL Albumin/Globulin Ratio (1.0-2.2) Nasal Adenovirus (PCR) Nasal B. parapertussis DNA (PCR) Nasal Coronavir 229E PCR Nasal Coronavir HKU1 PCR Nasal Coronavir NL63 PCR Nasal Coronavir OC43 PCR Nasal Enterovir/Rhinovir PCR Nasal Influenza B PCR Nasal Influenza A PCR Nasal Parainfluen 1 PCR Nasal Parainfluen 2 PCR Nasal Parainfluen 3 PCR Nasal Parainfluen 4 PCR Nasal RSV (PCR) Nasal B.pertussis DNA PCR Nasal C.pneumoniae (PCR) Freddy Human Metapneumo PCR Nasal M.pneumoniae (PCR) Nasal SARS-CoV-2 (PCR) 09/25/25 09/25/25 09/25/25 Range/Units 19:49 18:28 18:14 WBC 17.2 H (4.8-10.8) x10^3/uL RBC 4.67 (4.20-5.40) 10^6/uL Hgb 13.8 (12.0-16.0) g/dL Hct 42.4 (37.0-47.0) % MCV 90.8 (81.0-99.0) fL MCH 29.6 (27.0-31.0) pg MCHC 32.5 (32.0-36.0) g/dL RDW 12.1 (12.0-15.0) % Plt Count 276 (130-450) 10^3/uL MPV 10.3 (7.9-10.8) fL Neut # (Auto) 14.8 H (1.5-6.6) 10^3/uL Lymph # (Auto) 1.4 L (1.5-3.5) 10^3/uL Cameron # (Auto) 0.9 (0.0-1.0) 10^3/uL Eos # (Auto) 0.1 (0.0-0.7) 10^3/uL Baso # (Auto) 0.1 (0.0-0.1) 10^3/uL Absolute Nucleated RBC 0.00 x10^3/uL Nucleated RBC % 0.0 /100WBC VBG pH 7.431 H (7.31-7.41) VBG pCO2 43.9 (41-51) mmHg VBG pO2 51.3 H (25-47) mmHg VBG HCO3 29.5 H (23-28) mmol/L VBG Total CO2 30.9 H (24-29) mmol/L VBG O2 Saturation 84.0 H (60-80) % VBG Base Excess 5.0 H (-2 - +2) mmol/L Sodium 140 (135-145) mmol/L Potassium 3.7 (3.5-4.5) mmol/L Chloride 100 L (101-111) mmol/L Carbon Dioxide 31 (21-32) mmol/L Anion Gap 9.0 (6-13) BUN 18 (6-20) mg/dL Creatinine 1.5 H (0.6-1.3) mg/dL Estimated GFR (MDRD) 34 L (>89) Glucose 123 H (74-104) mg/dL POC Whole Bld Glucose (70-100) mg/dL Calcium 9.9 (8.5-10.3) mg/dL Total Bilirubin 0.7 (0.2-1.0) mg/dL AST 12 (10-42) IU/L ALT 9 L (10-60) IU/L Alkaline Phosphatase 86 (42-121) IU/L Total Protein 7.6 (6.4-8.9) g/dL Albumin 3.6 (3.2-5.5) g/dL Globulin 4.0 (2.1-4.2) g/dL Albumin/Globulin Ratio 0.9 L (1.0-2.2) Nasal Adenovirus (PCR) NOT DETECTED Nasal B. parapertussis DNA (PCR) NOT DETECTED Nasal Coronavir 229E PCR NOT DETECTED Nasal Coronavir HKU1 PCR NOT DETECTED Nasal Coronavir NL63 PCR NOT DETECTED Nasal Coronavir OC43 PCR NOT DETECTED Nasal Enterovir/Rhinovir PCR NOT DETECTED Nasal Influenza B PCR NOT DETECTED Nasal Influenza A PCR NOT DETECTED Nasal Parainfluen 1 PCR NOT DETECTED Nasal Parainfluen 2 PCR NOT DETECTED Nasal Parainfluen 3 PCR NOT DETECTED Nasal Parainfluen 4 PCR NOT DETECTED Nasal RSV (PCR) NOT DETECTED Nasal B.pertussis DNA PCR NOT DETECTED Nasal C.pneumoniae (PCR) NOT DETECTED Freddy Human Metapneumo PCR NOT DETECTED Nasal M.pneumoniae (PCR) NOT DETECTED Nasal SARS-CoV-2 (PCR) NOT DETECTED Assessment/Plan Problem List (1) Acute respiratory failure: Impression: Acute respiratory failure secondary to pneumonia, manage as below (2) Aspiration pneumonia: Impression: CT with evidence of right lower lobe ground glass opacity suggestive of aspiration pneumonia ATS, IDSA do not recommend routine coverage of anaerobes without evidence of abscess or empyema, so we will manage with Levaquin for now Continuing Levaquin 750 mg IV daily She still requires oxygen today, so continuing IV antibiotic Awaiting lab work this morning to trend her WBC (3) Type 2 diabetes mellitus with hyperglycemia: Impression: Restarting her home dose of Lantus 50 Units twice daily Continue SSI
[2025-07-15] MEDS ORDERED: ALBUTEROL NEB 2.5 MG/3 ML INH PRN (11:35)
[2025-07-15] MEDS: INSULIN GLARGINE-YFGN 300 UNIT/3 ML PEN SUBQ SCH (12:08)
[2025-07-15 19:15] LABS: HCT - HEMATOCRIT 40.7 % (37.0-47.0); HGB - HEMOGLOBIN 13.4 g/dL (12.0-16.0); MEAN PLATELET VOLUME 10.7 fL (7.9-10.8); NRBC ABSOLUTE COUNT (AUTO) 0.00 x10^3/uL; NUCLEATED RED BLOOD CELLS AUTO 0.0 /100WBC; PLT - PLATELET COUNT 323 10^3/uL (130-450); RED CELL DISTRIBUTION WIDTH 11.9 % (12.0-15.0)
[2025-07-15] MEDS: INSULIN REGULAR, HUMAN 300 UNIT/3 ML PEN IVP ONE (19:21)
[2025-07-15] MEDS: SODIUM CHLORIDE 0.9% 1,000 ML IV ONE (19:24)
[2025-07-15 19:29] LABS: BUN - BLOOD UREA NITROGEN 39.0 mg/dL (6-20); CARBON DIOXIDE - CO2 28.0 mmol/L (21-32); CREATININE 1.8 mg/dL (0.6-1.3); GFR - MDRD 28.0 (>89)
[2025-07-15 20:40] LABS: ESTIMATED AVERAGE GLUCOSE 197 mg/dL (70-100); HEMOGLOBIN A1c% 8.5 % (4.27-6.07)
[2025-07-15] MEDS: ATORVASTATIN 10 MG TABLET PO SCH (21:49)
[2025-07-16 06:28] LABS: HCT - HEMATOCRIT 37.4 % (37.0-47.0); HGB - HEMOGLOBIN 12.2 g/dL (12.0-16.0); MEAN PLATELET VOLUME 10.8 fL (7.9-10.8); NRBC ABSOLUTE COUNT (AUTO) 0.00 x10^3/uL; NUCLEATED RED BLOOD CELLS AUTO 0.0 /100WBC; PLT - PLATELET COUNT 310 10^3/uL (130-450); RED CELL DISTRIBUTION WIDTH 12.0 % (12.0-15.0)
[2025-07-16 06:46] LABS: BUN - BLOOD UREA NITROGEN 37.0 mg/dL (6-20); CARBON DIOXIDE - CO2 29.0 mmol/L (21-32); CREATININE 1.4 mg/dL (0.6-1.3); GFR - MDRD 37.0 (>89)
[2025-07-16] MEDS: DOCUSATE SODIUM 250 MG CAPSULE PO SCH (08:26)
--- NOTE | 2025-07-16 12:38 | Discharge Summary ---
Discharge Summary Admit Date: 07/14/25 Discharge Date: 07/16/25 Discharging Provider: Malik Gama Primary Care Provider: Cortney Cole Code Status: Attempt Resuscitation DIAGNOSES Admission Diagnoses: Acute respiratory failure with hypoxia Aspiration pneumonia Type 2 diabetes mellitus with hyperglycemia, with long-term current use of insulin Discharge Diagnoses with Status of Each Condition: Acute respiratory failure with hypoxiasecondary to pneumonia Aspiration pneumoniano evidence of aspiration on ST eval, discharged on Levaquin and Flagyl Type 2 diabetes mellitus with hyperglycemia, with long-term current use of insulinchronic HPI History of Present Illness: 74-year-old female with history of type 2 diabetes. A few years ago, she had a greater than 1 month stay at [facility] for COVID-pneumonia and was on oxygen long-term after that. She had weaned herself off of her oxygen. She reports feeling unwell, with dyspnea and cough developing over the past few days. She reports some episodes of hemoptysis, but usually without. Denies fever, chills, chest pain, bowel/bladder abnormality. Reports no smoking history. She reports that today she was particularly unwell, so she presented to the ER In the ER, chest x-ray was performed which showed possible pulmonary vascular congestion with interstitial edema. CT of the chest was performed which showed possible early developing interstitial lung disease but also showed ground glass opacities in the right lower lobe suspicious for aspiration pneumonia. Patient reports no aspiration episodes. Lab work revealed that her creatinine is slightly above baseline at 1.5. She also has an elevated WBC at 17.2. She was hypoxic on arrival, and requires 2 L oxygen to maintain saturation greater than 88%, so hospitalist was contacted for admission for pneumonia requiring supplemental oxygen HOSPITAL COURSE Hospital Course: Patient was admitted into the hospital and started on Levaquin IV. Her WBC trended up to 19.5 today, so I started her on Flagyl for anaerobic coverage. Symptomatically, she is much improved, and she is weaned off of oxygen. I am discharging her home with a 7-day total course of Levaquin, and 5-day total course of Flagyl ALLERGIES Allergies Allergy/AdvReac Type Severity Reaction Status Date / Time azithromycin (From Zithromax) AdvReac Severe Diarrhea Verified 07/14/25 18:01 cephalexin (From Keflex) AdvReac Severe hives Verified 07/14/25 18:01 canagliflozin (From Invokana) AdvReac Unknown Verified 07/14/25 18:01 MEDICATIONS Ambulatory Orders Medication Instructions Recorded Confirmed Permanent Disabled Placard 08/30/24 06/09/25 blood-glucose meter (FreeStyle 08/30/24 06/09/25 Lite Meter kit) pen needle, diabetic 31 gauge x 08/30/24 06/09/25 5/16" (1st Tier Unifine Pentips) rosuvastatin 10 mg tablet See Rx Instructions .Route 0 12/03/24 07/15/25 .COMPLEX #90 tabs albuterol sulfate 90 mcg/actuation 2 puff inhalation Q 6H PRN 12/07/24 07/15/25 aerosol inhaler (Ventolin HFA) shortness of breath or wheezing #8.5 grams blood sugar diagnostic (FreeStyle #360 strips 12/29/24 06/09/25 Lite Strips) losartan 50 mg tablet 50 mg PO BID #180 tabs 02/2407/15/25 tirzepatide 2.5 mg/0.5 mL 2.5 mg (0.5 mL) subcut QWEEK #6 mL 02/24/25 07/15/25 subcutaneous pen injector (Mounjaro) blood-glucose sensor (Dexcom G7 #9 ea 06/09/25 5 Sensor device) insulin glargine 100 unit/mL 50 unit (0.5 mL) subcut B ID Type 2 06/19/25 07/15/25 subcutaneous solution (Lantus diabetes mellitus #50 mL U-100 Insulin) insulin aspart U-100 100 unit/mL 12 - 18 unit subcut . TIDAC 07/15/25 07/15/25 (3 mL) subcutaneous pen (Novolog FlexPen U-100 Insulin aspart) levofloxacin 750 mg tablet 750 mg PO DAILY 5 days #5 t abs 07/16/25 metronidazole 250 mg tablet 500 mg (2 x 250 mg) PO TID WM 5 07/16/25 days #30 tabs PHYSICAL EXAM AT DISCHARGE Vital Signs: Vital Signs x48h Temp Pulse Pulse Resp BP Pulse Ox O2 Flow Rate 07/16/25 13:30 36.7 C 70 20 133/72 H 93 07/16/25 12:55 88 07/16/25 07:35 36.5 C 64 20 131/76 H 94 2 Physical Exam Other/Comments: General Appearance: positive No acute distress and Alert Eyes Bilateral: positive Normal inspection ENT: positive ENT inspection nml Neck: positive Nml inspection Respiratory: positive Chest non-tender and No respiratory distress Cardiovascular: positive Regular rate & rhythm Abdomen: positive Non-tender Back: positive Nml inspection Skin: positive Color nml Extremities: positive Non-tender Neurologic/Psychiatric: positive Oriented x3 LABS 07/16/25 05:58 07/16/25 05:58 FOLLOW UP Follow Up: With PCP TIME SPENT Time Spent in Discharge (Minutes): 39 Discharge Plan Discharge Patient Disposition: Home, Self Care Condition: Good Prescriptions: New metronidazole 250 mg Tablet 500 mg PO TIDWM 5 Days Qty: 30 0RF levofloxacin 750 mg tablet 750 mg PO DAILY 5 Days Qty: 5 0RF Continued rosuvastatin 10 mg tablet See Rx Instructions .ROUTE .COMPLEX Qty: 90 3RF Dose Instruction: TAKE 1 TABLET DAILY FOR CHOLESTEROL Rx Instructions: TAKE 1 TABLET DAILY FOR CHOLESTEROL (DME) FreeStyle Lite Strips Strip See Rx Instructions .Route Qty: 360 4RF Rx Instructions: As directed, use to check blood sugars 4x a day insulin glargine [Lantus U-100 Insulin] 100 unit/mL solution 50 unit subcut BID Qty: 50 0RF Rx Instructions: INJECT 50 UNITS UNDER THE SKIN TWICE A DAY FOR DIABETES MELLITUS TYPE 2 insulin aspart U-100 [Novolog FlexPen U-100 Insulin] 100 unit/mL (3 mL) insulin pen 12 - 18 unit subcut .TIDAC Rx Instructions: before meals, 12 UNITS IF BG 100-199, 15 UNITS IF BG 200-249, 18 UNITS IF BG 250 OR MORE (DME) pen needle, diabetic [1st Tier Unifine Pentips] 31 gauge x 5/16" needle See Rx Instructions .Route Rx Instructions: As directed (DME) Permanent Disabled Placard Misc See Rx Instructions .Route Rx Instructions: As directed (DME) blood-glucose meter [FreeStyle Lite Meter] Kit See Rx Instructions .Route Rx Instructions: As directed losartan 50 mg tablet 50 mg PO BID Qty: 180 3RF Mounjaro 2.5 mg/0.5 mL pen injector 2.5 mg subcut QWEEK Qty: 6 3RF Rx Instructions: inject 2.5 once weekly SC, then call in 4 weeks for refill (DME) Dexcom G7 Sensor Device See Rx Instructions .Route Qty: 9 4RF Rx Instructions: As directed to read blood sugar results via reader device albuterol sulfate [Ventolin HFA] 90 mcg/actuation HFA aerosol inhaler 2 puff inhalation Q6H PRN (Reason: shortness of breath or wheezing) Qty: 8.5 1RF Activity Restrictions: No Restrictions Diet: Diabetic Health Concerns: You came into the hospital with difficulty breathing and were diagnosed with pneumonia and you were right lower lobe. Because of how this looked on CT scan, concern was raised for aspiration. You were evaluated by speech therapy, who did not find any evidence of aspiration. You were started on a medication called levofloxacin/Levaquin as this covers most community-acquired pneumonias. Your white blood cell count kept going up, so I added a medication called Flagyl to cover a different range of infectious organisms. It is possible that your white blood cell count has gone up because of your severe high blood sugar, but to be safe I would like to cover you for aspiration with the Flagyl. Your respiratory status has improved, and you are now off of oxygen. I am discharging you home with the 2 previously discussed antibiotics. I would like for you to reach out to your primary care provider for follow-up. I checked your A1c while you were here and it was 8.5. You will need adjustments made to your home insulin regimen. If you experience chest congestion, I would recommend an [id number] mucolytic such as Mucinex. I would recommend avoiding cough suppressants for a few days as I would like for you to cough the junk out of your lungs. If the cough becomes too much, consider an [id number] Robitussin as that has mucolytic properties. Please return to the hospital if you begin having more shortness of breath, or uncontrolled fevers. Print Language: Yemeni Patient Instructions: ED Pneumonia (Adult) Stand Alone Forms: PCP List Follow-up Care: Cortney Cole PA-C [Primary Care Provider, Family Practice] Vitals documented within 30 minutes of discharge?: Yes (See DC VSs)
[2025-07-16 13:32] VITALS: BP 133/72; TEMP 98.1; O2SAT 93
== END 2025-07-16 13:34 | disposition home or self-care (01) | DRG 177 ==
LOC: ED 17:53 → MS2 21:06
PROVIDERS: ADMIT Nurse Practitioner Acute Care; ATTEND Nurse Practitioner Acute Care